=== PATIENT | female | born 1950 | race Caucasian/White ===

== ENCOUNTER 2024-03-10 13:46 | Outpatient (REF) | payer OTHER, SELFPAY | END 2024-03-10 13:47 | disposition home or self-care (01) | LOC: HO.SH 13:46 | PROVIDERS: Visit Provider Internal Medicine | DX: Z01.118 Encounter for examination of ears and hearing with other abnormal findings (principal); H90.3 Sensorineural hearing loss, bilateral | CPT/HCPCS: 92557; 92567 ==

== ENCOUNTER 2024-03-10 14:54 | Outpatient (REF) | payer SELFPAY ==
--- NOTE | 2024-03-14 10:24 | MHC.AU.HA1 ---
Hearing Aid Evaluation Date of Visit: 03/10/24 Historical Information: Description of Hearing: Within normal sloping to severe sensorineural hearing loss, bilaterally Summary: Accompanied by , Dax, who is a long-time hearing aid user. Shelia is ready to pursue amplification to help ease some of her communication difficulties. Shelia inquired about custom hearing aids, so as not to have anything behind her ears. Discussed occlusion effect given normal low frequency hearing. Shelia ultimately opted to trial a rechargeable RITE with domes. Shelia is not excited about getting hearing aids; however, she knows she needs them. Explained acclimatization period and importance of consistent use. Hearing Aid Prescription: Based on the individual?s shared listening needs, communication environments, dexterity, desire for connectivity, and personal preferences, the following prescription for amplification has been made: Right ear: Cooper Model, Color: Intent 2 miniRITE-R Color: Chroma Beige Battery Size: Rechargeable Clean Room Assembler/Slim Tube: 2/85 Type of Earmold/Dome/CShell/SlimTip: 8mm open michele dome Left ear: Left ear prescription to be same as Right Hearing Aid above: Model Cooper, Color: Intent 2 miniRITE-R Color: Chroma Beige Battery Size: Rechargeable Clean Room Assembler/Slim Tube: 2/85 Type of Earmold/Dome/CShell/SlimTip: 8mm open michele dome Accessories/Assistive Technology: Repair Tech; ConnectClip Plan of Care: Patient wishes to purchase hearing aids as prescribed Action Taken/Action Needed: Hearing Instrument Fitting to be scheduled when materials arrive Primary Diagnosis: H90.3 Bilateral Sensorineural Hearing Loss Signature: Provider: Panda Capellan, [facility]
== END 2024-03-10 14:55 | disposition home or self-care (01) ==
LOC: HO.HAP 14:54
PROVIDERS: Visit Provider Pediatrics
DX: Z46.1 Encounter for fitting and adjustment of hearing aid (principal); H90.3 Sensorineural hearing loss, bilateral
CPT/HCPCS: 92590

== ENCOUNTER 2024-03-28 13:31 | Outpatient (REF) | payer SELFPAY ==
--- NOTE | 2024-03-28 14:32 | MHC.AU.HA2 ---
Hearing Instrument Fitting- Adult- Binaural Date of Visit: 03/28/24 Hearing Instruments Dispensed: Right Ear: Make, Model, Color, Serial Number: Intent 2 miniRITE-R SN: [id number] Color: Chroma Beige Oxygen Therapy Technician Repair Warranty: 04/13/2027 Oxygen Therapy Technician Loss and Damage Warranty: 04/13/2027 [facility] Service Plan: OPTED OUT Battery Size: Rechargeable Branding Machine Tender/Slim Tube: 185 Earmold/Dome/CShell/SlimTip: 6mm open michele dome (no retention tail) Type of Wax Guard: miniFit Left Ear: Make, Model, Color, Serial Number: Intent 2 miniRITE-R SN: [id number] Color: Chroma Beige Oxygen Therapy Technician Repair Warranty: 04/13/2027 Oxygen Therapy Technician Loss and Damage Warranty: 04/13/2027 [facility] Service Plan: OPTED OUT Battery Size: Rechargeable Branding Machine Tender/Slim Tube: 185 Earmold/Dome/CShell/SlimTip: 6mm open michele dome (no retention tail) Type of Wax Guard: miniFit Accessories/Assistive Technology: Connectclip SN: [id number] Efrain: 04/13/2025; Mixing House Operator miniRITE SN: [id number] Efrain: 04/15/2027 Summary of Fitting: Accompanied by , Dax. Ran feedback analyzer and real ear measures. Decreased to AM2 due to perceived loudness. Own voice still uncomfortable but did not adjust any further at this time and encouraged time to acclimate to new sound quality. Discussed care, use, and rechargeability including manually turning on/off, VC use, and changing domes and wax guards. is a long-time hearing aid user and able to help with maintenance as needed. Practiced insertion/removal. Initially had retention tails but could not properly insert. Removed retention tail and still some difficulty inserting but motivated to practice. Dispensed ConnectClip but did not discuss at this time - instructed to bring back to follow up. Also did not discussed bluetooth yet. Recommendations: A hearing instrument follow-up was scheduled. Diagnosis Code(s): Primary Diagnosis: H90.3 Bilateral Sensorineural Hearing Loss Signature: Provider: Panda Capellan, [facility]
== END 2024-03-28 13:32 | disposition home or self-care (01) ==
LOC: HO.HAP 13:31
PROVIDERS: Visit Provider Internal Medicine
DX: Z46.1 Encounter for fitting and adjustment of hearing aid (principal); H90.3 Sensorineural hearing loss, bilateral
CPT/HCPCS: 92700; V5261; V5299

== ENCOUNTER 2024-04-18 12:46 | Outpatient (REF) | payer SELFPAY | END 2024-04-18 12:47 | disposition home or self-care (01) | LOC: HO.HAP 12:46 | DX: Z13.89 Encounter for screening for other disorder (principal) ==

== ENCOUNTER 2024-12-27 13:30 | Outpatient (AMB) | payer OTHER, SELFPAY ==
--- NOTE | 2024-12-27 13:34 | MHC.PC.OV ---
Vital Signs 12/27/24 13:36 Height 5 ft 2 in Weight 164 lb 14.492 oz BMI 30.2 BP 130/74 Blood Pressure Location Lt brachial Position Sitting Pulse 88 Pulse Source Pulse Oximeter Temp 57.1 F L Temp Source Temporal Artery Scan Pulse Oximetry (%) 98 Oxygen Delivery Method Room Air Intake Visit Reasons: Establish Care Intake Note: Patient is a new patient here to establish care for DM, Cholesterol, HTN, Seizure, Hx of stroke. Transferring care from DR Lucas . Medical records have been requested and have received. Pediatric Medical Assistant Required: No Winderman: Present Accompanied by: Spouse Allergies No Known Allergies Allergy (Verified 12/27/24 13:49) Medication List - Last Reconciled 12/27/24 by Sheron Pruitt PA-C amlodipine 5 mg PO DAILY aspirin 81 mg PO DAILY atorvastatin 80 mg PO DAILY blood-glucose sensor (FreeStyle Danni 3 Sensor device) Test blood sugar 5 times a day cholecalciferol (vitamin D3) 25 mcg PO DAILY dupilumab (Dupixent) 300 mg subcut Q2W insulin glargine (Lantus Solostar U-100 Insulin) 60 units subcut DAILY insulin lispro (Humalog KwikPen (U-100) Insulin) 14 units subcut DAILY levetiracetam 1,000 mg PO BID losartan 25 mg PO DAILY metformin 1,000 mg PO BID methenamine-sodium salicylate 162-162.5 mg (AZO Urinary Tract Defense) 1 tab PO BEDTIME multivitamin 1 tab PO DAILY pen needle, diabetic (Droplet Pen Needle) twice a day tirzepatide (Mounjaro) 10 mg subcut QWEEK Tobacco use date assessed: 12/27/24 Fall risk assessment: No Falls in past year Last assessed Fall Risk: 12/27/24 Dental Screening Dental Screen Date: 12/27/24 Did you have a dental visit in the last 12 months?: Yes Did you have a dental problem in the last 6 months where you did not have access to dental care?: No Was dental information given to patient?: Patient has dentist HPI Establish Care HPI Details 74-year-old female coming to the office for the 1st time. The patient is a 74-year-old female presenting with chronic disease management and medication review. Her Type 2 Diabetes Mellitus is under active monitoring with a recent A1c level of 7% and daily blood sugar readings using FreeStyle Danni, emphasizing patient engagement in condition control. She has a four-year history of seizure disorder, which began following a minor stroke that led to the use of a walker due to right-sided weakness. She has been under neurologist care with changes in medication overseen. Patient has a associate application developer through [facility], endocrinology through [facility], neurologist through [facility] and eye doctor yearly through [facility]. She also has a cutlery grinder through a [facility] manages her allergic dermatitis. [facility] Surgical History (Updated 12/27/24 @ 14:02 by Sheron Pruitt PA-C) History of knee surgery Social History Housing: House Alcohol intake: never Patient Tobacco Use Status: Never used Tobacco e-Cigarette/Vaping Use: Never Used Second Hand Smoke Exposure: No service: No Current occupational status: retired and disabled Cognitive needs: Yes (Wheelchair, Walker) Hearing needs: Yes (hearing aide) Vision needs: Yes (Glasses) Questionnaire PHQ-9 Over the last 2 weeks, how often have you been bothered by any of the following problems? 1. Little interest or pleasure in doing things: not at all 2. Feeling down, depressed, or hopeless: not at all 3. Trouble falling or staying asleep, or sleeping too much: not at all 4. Feeling tired or having little energy: several days 5. Poor appetite or overeating: not at all 6. Feeling bad about yourself - or that you are a failure or have let yourself or your family down: not at all 7. Trouble concentrating on things, such as reading the newspaper or watching television: not at all 8. Moving or speaking so slowly that other people could have noticed. Or the opposite - being so fidgety or restless that you have been moving around a lot more than usual: not at all 9. Thoughts that you would be better off or of hurting yourself in some way: not at all Total score: 1 Depression Screening Interpretation: Positive Depression Screening Follow-up: Declines treatment Depression Screening Done: Yes Source: Developed by Drs. Niko Heard, Yolanda Barakat, Yonathan Beauchamp and colleagues, with an educational balaji from [facility] [employer]. Thrive Questionnaire Date Thrive assessed: 12/27/24 I am a: Patient What is your living situation today?: I have a steady place to live Within the past 12 months, did the food you bought not last and you didn't have the money to get more?: Never true Within the past 12 months, did you worry whether your food would run out before you got money to buy more?: Never true Do you have trouble paying for medicines?: No Do you have trouble getting transportation to medical appointments?: No Do you have trouble paying your heating and electricity bill?: No Do you have trouble taking care of your child, family member or friend?: No Do you have trouble with day-to-day activities such as bathing, preparing meals, shopping, managing finances, etc.?: No Are you currently unemployed and looking for a job?: No Are you interested in more education?: No Please select the resources that you would like help with: None Currently or been in a relationship where the following occur: No concerns reported THRIVE Score: 0 AUDIT C Alcohol Use Questionnaire (AUDIT-C) 1. How often do you have a drink containing alcohol?: Never Total Score: 0 ALBERT-7 AMB Questionnaire ALBERT-7 Date ALBERT - 7 assessed: 12/27/24 Feeling nervous, anxious, or on edge: 0 = Not at all Not being able to stop or control worryin = Not at all Worrying too much about different things: 0 = Not at all Trouble relaxin = Not at all Being so restless that it is hard to sit still: 0 = Not at all Becoming easily annoyed or irritable: 1 = Several days Feeling afraid as if something awful might happen: 0 = Not at all Total ALBERT-7 score (0-4 normal; 5-9 mild; 10-14 moderate; 15-21 severe): 1 Source: Developed by Drs. Niko Heard, Yolanda Barakat, Yonathan Beauchamp and colleagues, with an educational balaji from [facility]. ALBERT-7 Assessment Billing ALBERT-7 Assessment Tool: ALBERT-7 Assessment 16119 Review of Systems Const Denies body aches, Denies chills, Denies fever(s), Denies headache(s) and Denies poor appetite Eyes Reports no additional complaints ENT Denies dysphagia, Denies dizziness, Denies headache(s) and Denies odynophagia Card Denies chest pain, Denies syncope, Denies edema, Denies irregular heart rhythm, Denies lightheadedness and Denies dyspnea Resp Denies cough and Denies dyspnea GI Denies abdominal pain, Denies constipation, Denies dysphagia, Denies diarrhea, Denies nausea, Denies odynophagia and Denies vomiting Reports no additional complaints Musc Reports abnormal gait Skin/Breast Reports system reviewed and no additional complaints, except as documented Neuro Reports abnormal gait, Denies dizziness, Denies syncope and Denies headache(s) Psych Reports no additional complaints Physical exam (Primary Care) Vital Signs: Last Vital Signs Temp 57.1 F L 12/27/24 13:36 Pulse 88 12/27/24 13:36 BP 130/74 12/27/24 13:36 Pulse Ox 98 12/27/24 13:36 Oxygen Delivery Method Room Air 12/27/24 13:36 BMI result Body Mass Index 30.2 Tobacco/Smoking Status: Tobacco use Status Tobacco use date assessed 12/27/24 12/27/24 13:36 Patient Tobacco Use Status Never used Tobacco 12/27/24 13:36 e-Cigarette/Vaping Use Never Used 12/27/24 13:36 PHQ-9: PHQ-9 Score PHQ-9: Total score 1 12/27/24 14:12 Depression Screening Interpretation: Positive Depression Screening Follow-up: Declines treatment Thrive Assessment: Date of Thrive Assessment Date Thrive assessed 12/27/24 12/27/24 13:36 Currently or been in a relationship where the following occur: No concerns reported Const General: cooperative, healthy appearing, comfortable and no acute distress Orientation/consciousness: patient oriented x3 HENMT Head: Yes normocephalic Ears: hearing grossly normal bilaterally General nose exam: Normal external nose present Eyes General: appearance normal, both eyes and all related structures Conjunctivae: conjunctivae normal Neck Neck: Yes full ROM and Yes no lymphadenopathy Resp Effort & Inspection: normal respiratory effort Auscultation: clear to auscultation bilaterally, no crackles, no rales, no rhonchi and no wheezes Cardio Rate: regular rate Rhythm: regular rhythm Skin General skin exam: no rashes or lesions noted Neuro General: patient oriented x3 Gait exam (Neuro): Normal gait present Extrem General: Yes normal to inspection, Yes full ROM and No edema Psych Affect: normal affect Attitude: cooperative Insight: Good insight present (Psych) Judgement: Good judgement present (Psych) Results AMB Hemoglobin A1c AMB Hemoglobin A1c 7.0 % Last Edit by DARLINE Sánchez on 12/27/24 14:20 Results Reviewed Results Reviewed: Laboratory Last Values Hgb A1c (Clinic) 7.0 % (4.0-6.0) H 12/27/24 14:02 Coding Level of Care Code New Pt Level 4 (99270) Diagnoses Diabetes mellitus E11.9 Seizure disorder G40.909 Hypercholesterolemia E78.00 CVA (cerebral vascular accident) I63.9 Hypertension I10 Dermatitis L30.9 Screening for breast cancer Z12.39 Additional Codes ALBERT-7 Assessment Billing - ALBERT-7 Assessment Tool: ALBERT-7 Assessment 12740 ([id number]) Assessment & Plan Assessment & Plan (1) Diabetes mellitus: Comment: [facility] endocrinology Code(s): E11.9 - Type 2 diabetes mellitus without complications Category: Medical Plan: Decrease the amount of carbohydrates such as pasta, bread, rice, and potatoes and limit the amount of sweets. Although fruits are generally healthy they should be eaten in moderation as they are still high in sugar. Hemoglobin A1c goal of less than 7%. Currently on Mounjaro 10 mg, metformin 1000 mg twice daily, Lantus 60 units daily and Humalog 14 units daily. Currently following up [facility] endocrinology for management of her medications. (2) Seizure disorder: Comment: [facility] Neurology Code(s): G40.909 - Epilepsy, unspecified, not intractable, without status epilepticus Category: Medical Plan: Patient has upcoming appointment with neurologist for further management of her seizure disorder s/p CVA. (3) Hypercholesterolemia: Code(s): E78.00 - Pure hypercholesterolemia, unspecified Category: Medical Plan: Avoid foods that are high in cholesterol such as red meat, fried foods, eggs and baked goods. Triglyceride goal of less than 150 and LDL goal of less than 70. Continue on atorvastatin 80 ordered for updated blood work (4) CVA (cerebral vascular accident): Comment: 2020 minor stroke Code(s): I63.9 - Cerebral infarction, unspecified Category: Medical Plan: Patient had minor stroke in 2020. Advised good control of blood sugars, cholesterol and blood pressures. Continue aggressive management of cholesterol with atorvastatin 80 mg, on aspirin 81 mg daily and aggressive blood pressure management (5) Hypertension: Code(s): I10 - Essential (primary) hypertension Category: Medical Plan: Continue on current blood pressure medication. Avoid salt intake and encourage healthy diet and regular exercise. (6) Dermatitis: Comment: [facility] Code(s): L30.9 - Dermatitis, unspecified Category: Medical Plan: Patient follows with [facility] for allergic dermatitis and uses Dupixent for management. (7) Screening for breast cancer: Code(s): Z12.39 - Encounter for other screening for malignant neoplasm of breast Category: Medical Plan: Patient declines referral for mammogram at this time and states she will call to schedule mammogram herself. Plan Ordered for updated blood work and plan to follow up in 3 months for annual exam. This note was constructed using voice recognition software. While every effort has been made to ensure accuracy and gardening supervisor, still areas may have been included sometimes these areas may affect the content or meeting of the given symptoms. Total time spent caring for the patient today was 30 minutes. This includes time spent before the visit reviewing the chart, time spent during the visit, and time spent after the visit and documentation. Patient was informed and verbally consented to the use of an ambient scribe for clinic note documentation during this visit. Orders: Orders AMB Hemoglobin A1c Today E11.9 - Type 2 diabetes mellitus without complications TSH reflex Free T4 Today Z00.00 - Encounter for general adult medical examination without abnormal findings Lipid Panel Today E78.00 - Pure hypercholesterolemia, unspecified Complete Blood Count Auto Diff Today Z00.00 - Encounter for general adult medical examination without abnormal findings Comprehensive Met. Panel Today Z00.00 - Encounter for general adult medical examination without abnormal findings Free T4 (Free Thyroxine) Today Z00.00 - Encounter for general adult medical examination without abnormal findings Vitamin B12 and Folate Today Z00.00 - Encounter for general adult medical examination without abnormal findings Vitamin D 25-OH Total Today Z00.00 - Encounter for general adult medical examination without abnormal findings Referrals Gastroenterology Referral Z12.11 - Encounter for screening for malignant neoplasm of colon
[2024-12-27 13:36] VITALS: BP 130/74; PULSE 88; TEMP 13.9; O2SAT 98; BMI 30.2
--- OUTSIDE RECORDS SUMMARY | 2024-12-27 16:10 | XMS_ITS | Clinical Summary ---
Author Organization [facility] Address [address] [place] [address] Phone Care Team Providers Care Tow Driver Name Role Phone Shahram Jeffery MD Primary Care Provider Allergies No known active allergies Medications amLODIPine (NORVASC) 5 mg tablet 5 Active atorvastatin (LIPITOR) 80 mg tablet Take 1 tablet (80 mg total) by mouth 1 (one) time each day. 4 Active FreeStyle Danni 3 [place] misc use as directed to test blood sugar 4 Active FreeStyle Danni 3 Sensor device 5 Active FreeStyle Danni 14 Day Sensor kit USE TO MONITOR BLOOD SUGAR FOUR TIMES A DAY. REPLACE EVERY 14 DAYS. 4 Active Lantus Solostar U-100 Insulin 100 unit/mL (3 mL) injection pen INJECT 54 UNITS SUBCUTANEOUSLY EVERY DAY 5 Active levETIRAcetam (KEPPRA) 500 mg tablet Take 2 tablets (1,000 mg total) by mouth 2 (two) times a day. 5 Active losartan (COZAAR) 25 mg tablet 5 Active metFORMIN (GLUCOPHAGE) 1,000 mg tablet 5 Active mupirocin (BACTROBAN) 2 % ointment APPLY TOPICALLY TO AFFECTED OPEN AREAS EVERY MORNING AND EVERY EVENING UNTIL HEALED 4 Active Droplet Pen Needle 32 gauge x 5/32 needle 5 Active Mounjaro 7.5 mg/0.5 mL injection Inject 0.5 mL (7.5 mg total) under the skin. 4 Active HumaLOG KwikPen Insulin 100 unit/mL injection pen 5 Active Trulicity 1.5 mg/0.5 mL pen injector injection INJECT 0.5ML SUBCUTANEOUSLY EVERY WEEK DIRECTED. ROTATE INJECTION SITES 4 Active cefpodoxime (VANTIN) 200 mg tablet Take 1 tablet (200 mg total) by mouth every 12 (twelve) hours. for 7 days 4 Active Encounters Date Type Department Care Team Description 11/24/2024 Telephone Gastroenterology - [address] [place] [address] Tarun Marx MD from Last 3 Months Social History Tobacco Use Types Packs/Day Years Used Date Smoking Tobacco: Never Assessed Comments Unknown Sex and Gender Information Value Date Recorded Sex Assigned at Not on file Legal Sex Female 6:05 PM EST Gender Identity Not on file Sexual Orientation Not on file Plan of Treatment Health Maintenance Due Date Last Done Comments DTaP,Tdap,and Td Vaccines (1 - Tdap) 1970 Pneumococcal Vaccine: 50+ Years (1 of 1 - PCV) 2001 Zoster Vaccines (1 of 2) 2001 Colorectal Cancer Screening: Colonoscopy 08/29/2022 Depression Screening 08/29/2022 Falls Risk Assessment 08/29/2022 Hepatitis C Screening 08/29/2022 Medicare Annual Wellness Visit 08/29/2022 Osteoporosis Screening (Bone Density Screening) 08/29/2022 Social Influencers of Health Screening 08/29/2022 Breast Cancer Screening 01/09/2024 01/09/20, 05/05/2019, 05/02/2018 COVID-19 Vaccine ( - 2023-2 5 season) 2024 Influenza Vaccine (#1) 2024 RSV Immunization Adult Patients (1 - 1-dose 75+ series) 2026 HIB Vaccines Aged Out No longer eligi ble based on patient's age to complete this topic HPV Vaccines Aged Out No longer eligi ble based on patient's age to complete this topic Hepatitis A Vaccines Aged Out No long er eligible based on patient's age to complete this topic Hepatitis B Vaccines Aged Out No long er eligible based on patient's age to complete this topic IPV Vaccines Aged Out No longer eligi ble based on patient's age to complete this topic MMR Vaccines Aged Out No longer eligi ble based on patient's age to complete this topic Meningococcal ACWY Vaccine Aged Out N o longer eligible based on patient's age to complete this topic Meningococcal B Vacine Aged Out No lo nger eligible based on patient's age to complete this topic RSV Immunization Patients Under 20 months Aged Out No longer eligible b ased on patient's age to complete this topic Varicella Vaccines Aged Out No longer eligible based on patient's age to complete this topic Procedures Procedure Name Priority Date/Time Associated Diagnosis Comments [facility] SCREENING DIGITAL Routine 01/08/2022 1:30 PM EDT Encounter for screening mammogram for malignant neoplasm of breast from Last 3 Months or Most Recently Relevant to Health Maintenance Results * [facility] SCREENING DIGITAL (01/08/2022 1:30 PM EDT) Anatomical Region Laterality Modality Mammography 01/08/2022 11:0 9 AM EDT Narrative 01/08/2022 1:30 PM EDT [facility] Diagnostic Imaging Department [address] [place], [place] [id number] Patient: ??SHELIA GREEN ?/Age/Sex: 1950 - 71 - F Unit#: ??[id number] ? Location/Status: ??SPDIMAM/REG CLI ? Mnemonic/Ordering Site: ??DIGSC/SPMAM Ordering Physician: ??SHAHRAM JEFFERY MD [facility] Screening Digital - 01/08/22 - 1134 EXAM: [facility] Screening Digital EXAM DATE AND TIME: 01/08/2022 11:34 AM HISTORY: ??Screening. COMPARISON: ??05/05/19, 05/02/18, 04/21/17, 03/09/16 TECHNIQUE: CC and MLO views of both breasts were obtained using full field digital mammography. Bilateral digital breast tomosynthesis was performed in the MLO projection. Computer aided detection with the [employer]Waynaut was employed. TISSUE DENSITY: a. The breasts are almost entirely fatty. FINDINGS: No suspicious masses, grouped microcalcifications, or areas of architectural distortion are seen. Several coarse, benign calcifications are scattered bilaterally, unchanged. Vascular calcification is present. The skin is unremarkable. IMPRESSION: Stable mammographic appearance of the breasts. ??No evidence of malignancy is seen. A negative mammogram in the presence of a clinically suspicious palpable abnormality does not preclude the possibility of malignancy or alter the indicat ions for biopsy. BI-RADS: ??Category 2: Benign RECOMMENDATION(S): 1: Routine screening mammogram BILATERAL in 1 year. 07163, 59545 3342F, 7025F Dictating Physician: ??YAN LOCO MD Electronically Signed by: ??YAN LOCO MD Dic Date/Time: ??01/08/22 1330 Sign date/Time: ??01/08/22 1330 Procedure Note Yan Loco MD - 09/16/2022 [facility] Diagnostic Imaging Department [address] [place] [address] [id number] Patient: SHELIA GREEN/Age/Sex: 1950 - 71 - F Unit#: [id number] Location/Status: SPDIMAM/REG CLI Mnemonic/Ordering Site: [facility] Ordering Physician: SHAHRAM JEFFERY MD [facility] Screening Digital - 01/08/22 - 1134 EXAM: [facility] Screening Digital EXAM DATE AND TIME: 01/08/2022 11:34 AM HISTORY: Screening. COMPARISON: 05/05/19, 05/02/18, 04/21/17, 03/09/16 TECHNIQUE: CC and MLO views of both breasts were obtained using fullfield digital mammography. Bilateral digital breast tomosynthesis was performedin the MLO projection. Computer aided detection with the [employer]Eqv[employer]as employed. TISSUE DENSITY: a. The breasts are almost entirely fatty. FINDINGS: No suspicious masses, grouped microcalcifications, or areas ofarchitectural distortion are seen. Several coarse, benign calcifications are scattered bilaterally, unchanged. Vascular calcification is present. The skin is unremarkable. IMPRESSION: Stable mammographic appearance of the breasts. No evidence of malignancyis seen. A negative mammogram in the presence of a clinically suspicious palpable abnormality does not preclude the possibility of malignancy or alter theindicat ions for biopsy. BI-RADS: Category 2: Benign RECOMMENDATION(S): 1: Routine screening mammogram BILATERAL in 1 year. 05172, 15742 3342F, 7025F Dictating Physician: YAN LOCO MD Electronically Signed by: YAN LOCO MD Dic Date/Time: 01/08/22 1330 Sign date/Time: 01/08/221329 us Shahram Jeffery MD IMG BI PROCEDURES Final Res ult from Last 3 Months or Most Recently Relevant to Health Maintenance Insurance [facility] MEDICARE ADVANTAGE on file [facility] Care Teams Tow Driver Relationship Specialty Start Date End Date Shahram Jeffery MD [address] [place] [id number] PCP - General Internal Medicine 11/24/24
--- OUTSIDE RECORDS SUMMARY | 2024-12-27 16:10 | XMS_ITS | Encounter Summary ---
Author Organization [facility] [place] [address] Care Team Providers Care Sales Support Technician Name Role Phone Brenden Lucas MD Primary Care Provider [phone] Encounter Details Date Type Department Care Team (Late st Contact Info) Description 11/24/2024 Telephone Gastroenterology - [address] [place] [id number] Tarun Marx MD [address] [place] [address] Social History Tobacco Use Types Packs/Day Years Used Date Smoking Tobacco: Never Assessed Comments Unknown Sex and Gender Information Value Date Recorded Sex Assigned at Not on file Legal Sex Female 6:05 PM EST Gender Identity Not on file Sexual Orientation Not on file documented as of this encounter Progress Notes * Kelsey Tijerina MA - 11/24/2024 11:50 AM EST Medications and allergies updated. * Soni Maxwell - 11/24/2024 9:41 AM EST Records received from [facility] to book direct colon, given to VELASQUEZ to update meds and allergies. documented in this encounter Plan of Treatment Not on file documented as of this encounter Visit Diagnoses Not on filedocumented in this encounter Historical Medications * This list may reflect changes made after this encounter. cefpodoxime (VANTIN) 200 mg tablet Take 1 tablet (200 mg total) by mouth every 12 (twelve) hours. for 7 days 06/15/2024 Trulicity 1.5 mg/0.5 mL pen injector injection INJECT 0.5ML SUBCUTANEOUSLY EVERY WEEK DIRECTED. ROTATE INJECTION SITES 01/10/2024 HumaLOG KwikPen Insulin 100 unit/mL injection pen 10/15/2024 Mounjaro 7.5 mg/0.5 mL injection Inject 0.5 mL (7.5 mg total) under the skin. 09/17/2024 Droplet Pen Needle 32 gauge x 5/32 needle 09/28/2024 mupirocin (BACTROBAN) 2 % ointment APPLY TOPICALLY TO AFFECTED OPEN AREAS EVERY MORNING AND EVERY EVENING UNTIL HEALED 04/11/2024 metFORMIN (GLUCOPHAGE) 1,000 mg tablet 09/27/2024 losartan (COZAAR) 25 mg tablet 09/28/2024 levETIRAcetam (KEPPRA) 500 mg tablet Take 2 tablets (1,000 mg total) by mouth 2 (two) times a day. 11/08/2024 Lantus Solostar U-100 Insulin 100 unit/mL (3 mL) injection pen INJECT 54 UNITS SUBCUTANEOUSLY EVERY DAY 10/31/2024 FreeStyle Danni 14 Day Sensor kit USE TO MONITOR BLOOD SUGAR FOUR TIMES A DAY. REPLACE EVERY 14 DAYS. 12/21/2023 FreeStyle Danni 3 Sensor device 11/22/2024 FreeStyle Danni 3 [place] misc use as directed to test blood sugar 12/22/2023 atorvastatin (LIPITOR) 80 mg tablet Take 1 tablet (80 mg total) by mouth 1 (one) time each day. 07/05/2024 amLODIPine (NORVASC) 5 mg tablet 09/28/2024 added in this encounter Care Teams Sales Support Technician Relationship Specialty Start Date End Date Brenden Lucas MD [address] [place], [place] [id number] PCP - General Internal Medicine 11/24/24 documented as of this encounter
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
--- OUTSIDE RECORDS SUMMARY | 2024-12-27 16:11 | XMS_ITS | Patient Health Record ---
Author Organization [facility] Address [address] [facility] [place] [address] Care Team Providers Care Supervisor Rod Placing Name Role Phone Brenden Lucas MD Primary Care Provider Lisa Lema Unavailable [phone] Allergies No Known Allergies Reason For Referral No Information Medications Medication SIG (Take, Route, Frequency, Duration) Notes Start Date End Date Status Custom Orthotics Act quita Trulicity Active Vitamin D Active Leesa 5-20 MG Orally twice a day Active Aspirin 325 MG 1 tablet as needed Orally every 4 hrs Not-Taking Omeprazole Active Vicodin Not-Taking Lipitor Active Bystolic Not-Taking metFORMIN HCl 1000 MG Orally twice a day Active Insulin 56 units Act quita Extra Depth Orthopedic Shoes (1 Pair) with Customized Heat Molded Multidensity Innersoles (3 Pair) as directed Dx: NIDDM/Polyneuropathy (E11.42), Hammertoe Foot Deformity (M20.41,M20.42), Preulcerative Skin Lesion(s) (L85.1 02/14/2024 Active Lantus 56 units once a day Act quita Biofreeze Not-Taking Dupixent Active Actos Active Aspir-81 81 MG 1 tablet Orally Once a day for 30 day(s) Active [facility] Active Immunizations Vaccine Route Administration Date Status Comme nts Influenza Unknown 06/23/2016 Administered Influenza Unknown 08/03/2017 Administered Influenza Unknown 07/18/2018 Administered Influenza Unknown 07/28/2019 Administered Influenza Unknown 05/28/2020 Administered Influenza Unknown 08/27/2021 Administered Influenza Unknown 06/01/2023 Administered Social History Tobacco Use: Social History Observation Description Date Details (start date - stop date) Never Smoker NA - NA Tobacco Use/Smoking Question Answer Notes Are you a: nonsmoker Additional Findings: Tobacco Non-User Current no n-smoker Alcohol Screen Question Answer Notes Did you have a drink containing alcohol in the p ast year? No Points 0 Interpretation Negative Tobacco use other than smoking: Question Answer Notes Are you an other tobacco user? No Problems Problem Type SNOMED Code ICD Code Onset Dates Problem Status W/U Status Risk Notes Problem Acquired hammer toe of right foot (8930386563362557) Other hammer toe(s) (acquired), right foot (M20.41) Active confirmed Problem Acquired hallux valgus (94314294) Hallux valgus (acquired), left foot (M20.12) Active confirmed Problem Acquired hammer toe of left foot (0622231372940974) Other hammer toe(s) (acquired), left foot (M20.42) Active confirmed Problem Acquired hallux valgus (92096456) Hallux valgus (acquired), right foot (M20.11) Active confirmed Problem Non-pressure ulcer lower limb (461047155) Non-pressure chronic ulcer of other part of left foot limited to breakdown of skin (L97.521) Active confirmed Problem Acquired hammer toe of right foot (4476912834656523) Other hammer toe(s) (acquired), right foot (M20.41) Active confirmed Problem Acquired hammer toe of left foot (5954397578469937) Other hammer toe(s) (acquired), left foot (M20.42) Active confirmed Problem Plantar nerve lesion (199896055) Lesion of plantar nerve, 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) Active confirmed Problem Polyneuropathy due to diabetes mellitus type I (165718143) Type 1 diabetes mellitus with diabetic polyneuropathy (E10.42) Active confirmed Problem 16701031982678476 Skin ulcer of toe of right foot, limited to breakdown of skin (L97.511) Active confirmed Problem 06392621822770536 Skin ulcer of toe of left foot, limited to breakdown of skin (L97.521) Active confirmed Vital Signs Height 5ft 3in in 08/31/2024 Weight 160 lbs 08/31/2024 BMI 28.34 kg/m2 08/31/2024 Procedures Procedure Date Ordered Date Performed Result Body Sit e 82096-WWQHLYA NAIL, 6 OR MORE 02/03/2024 N/A 19316- Debride <25 sq cm 02/03/2024 N/A 08813- I&D ABSCESS-COMPLICATED,MULTI 02/03/2024 N/A 32013-XXUY SKIN LESIONS, OVER 4 02/03/2024 N/A 96722- Debride <25 sq cm 02/14/2024 N/A 64264-CSGYHWA NAIL, 6 OR MORE 06/29/2024 N/A 62575-Rbhusyzl Plate 06/29/2024 N/A 75012-RZNI SKIN LESIONS, OVER 4 06/29/2024 N/A 00282-HIGYLEY NAIL, 6 OR MORE 08/31/2024 N/A 69516-IIDN SKIN LESIONS, OVER 4 08/31/2024 N/A Encounters Encounter Location Date Provider Diagnosis [address] [address] 02/03/2024 Lisa Black Type 1 diabetes mellitus with diabetic polyneuropathy E10.42 ; Subungual abscess of toe, right L03.031 ; Tinea unguium B35.1 ; Subungual abscess of toe, left L03.032 and Skin ulcer of toe of left foot, limited to breakdown of skin L97.[address] [address] 02/14/2024 Lisa Black Other hammer toe(s) (acquired), right foot M20.41 ; Other hammer toe(s) (acquired), left foot M20.42 ; Type 1 diabetes mellitus with diabetic polyneuropathy E10.42 and Skin ulcer of toe of right foot, limited to breakdown of skin L97.[address] [address] 06/29/2024 Lisa Black Tinea unguium B35.1 ; Type 1 diabetes mellitus with diabetic polyneuropathy E10.42 and Ingrown nail L60.[address] [address] 08/31/2024 Lisa Black Tinea unguium B35.1 and Type 1 diabetes mellitus with diabetic polyneuropathy E10.42 [address] [address] [place] [address] 02/03/2024 Lisa Crouch [facility] [address] [address] 05/31/2024 Lisadominick Crouch [facility] [address] [address] 11/02/2024 Lisa Crouch Assessments Encounter Date Diagnosis (ICD Code) Assessment Notes Treatment Notes Treatment Clinical Notes Section Notes 02/03/2024 Type 1 diabetes mellitus with diabetic polyneuropathy (ICD-10 - E10.42) 02/03/2024 Subungual abscess of toe, right (ICD-10 - L03.031) 02/14/2024 Other hammer toe(s) (acquired), right foot (ICD-10 - M20.41) Patient Educated with: DIABETIC FOOT CARE INSTRUCTIONS. pdf (DIABETIC FOOT CARE INSTRUCTIONS. pdf) 02/14/2024 Other hammer toe(s) (acquired), left foot (ICD-10 - M20.42) 06/29/2024 Tinea unguium (ICD-10 - B35.1) 08/31/2024 Tinea unguium (ICD-10 - B35.1) 08/31/2024 Type 1 diabetes mellitus with diabetic polyneuropathy (ICD-10 - E10.42) 06/29/2024 Type 1 diabetes mellitus with diabetic polyneuropathy (ICD-10 - E10.42) 02/14/2024 Type 1 diabetes mellitus with diabetic polyneuropathy (ICD-10 - E10.42) 02/03/2024 Tinea unguium (ICD-10 - B35.1) 02/14/2024 Skin ulcer of toe of right foot, limited to breakdown of skin (ICD-10 - L97.511) 02/03/2024 Subungual abscess of toe, left (ICD-10 - L03.032) 06/29/2024 Ingrown nail (ICD-10 - L60.0) 02/03/2024 Skin ulcer of toe of left foot, limited to breakdown of skin (ICD-10 - L97.521) Plan Of Treatment Pending Test Test Name Order Date *Wound Culture 02/03/2024 17903-NFQUIQG NAIL, 6 OR MORE 02/03/2024 22327-IYYFWDG NAIL, 6 OR MORE 07/26/2023 03042-TKRZUUA NAIL, 6 OR MORE 11/04/2023 56191-WZHYQYL NAIL, 6 OR MORE 10/26/2022 18683-PKGXNXN NAIL, 6 OR MORE 01/28/2023 32072-FSWZESG NAIL, 6 OR MORE 05/10/2023 82710-RPTPAVN NAIL, 6 OR MORE 06/29/2024 49284-HRFZSGP NAIL, 6 OR MORE 08/31/2024 94897-DMNVIUM NAIL, 6 OR MORE 12/09/2011 62081-SOABJRO NAIL, 6 OR MORE 03/16/2012 11526-JOEBJHQ NAIL, 6 OR MORE 09/28/2012 06515-JMQRXDT NAIL, 6 OR MORE 12/28/2012 31606-FGIZYRC NAIL, 6 OR MORE 05/31/2013 60119-YZQMGCD NAIL, 6 OR MORE 10/11/2013 04410-NHIJUWU NAIL, 6 OR MORE 03/21/2014 10769-PMHDSEU NAIL, 6 OR MORE 06/27/2014 76280-WIJCTGU NAIL, 6 OR MORE 09/12/2014 65274-BFSIUTL NAIL, 6 OR MORE 12/12/2014 90364-DPCFKOY NAIL, 6 OR MORE 02/27/2015 31993-CZFRERM NAIL, 6 OR MORE 06/12/2015 55375-ERWPWUV NAIL, 6 OR MORE 10/16/2015 72463-ACDNHNA NAIL, 6 OR MORE 04/22/2016 73858-DLPPLEI NAIL, 6 OR MORE 07/23/2016 84158-ZYPSARD NAIL, 6 OR MORE 10/22/2016 24010-IYNSIIG NAIL, 6 OR MORE 12/24/2016 13442-MELSFIG NAIL, 6 OR MORE 01/22/2016 64996-IZMEKTF NAIL, 6 OR MORE 02/25/2017 19498-BJOYIYP NAIL, 6 OR MORE 04/29/2017 55656-TKZZPJU NAIL, 6 OR MORE 07/01/2017 91179-WVJYQTL NAIL, 6 OR MORE 09/02/2017 88106-HLCWPIZ NAIL, 6 OR MORE 11/18/2017 50879-JWTKPAX NAIL, 6 OR MORE 01/20/2018 27778-NIVKJQA NAIL, 6 OR MORE 04/06/2018 75725-QKMSICB NAIL, 6 OR MORE 05/26/2018 81101-ZQCJRTK NAIL, 6 OR MORE 08/04/2018 78409-RBEFTUL NAIL, 6 OR MORE 12/08/2018 53245-NLEGKKY NAIL, 6 OR MORE 02/09/2019 27258-LLTHYKZ NAIL, 6 OR MORE 04/13/2019 11042-MAMACEP NAIL, 6 OR MORE 06/15/2019 17613-ZBYNTLC NAIL, 6 OR MORE 09/07/2019 71645-PEIMCNJ NAIL, 6 OR MORE 11/16/2019 03739-LOKTFQU NAIL, 6 OR MORE 01/25/2020 37731-LOCBJEZ NAIL, 6 OR MORE 04/11/2020 50528-BVQBAFC NAIL, 6 OR MORE 01/20/2021 62868-ETQKEOL NAIL, 6 OR MORE 04/10/2021 00555-LUJFGFJ NAIL, 6 OR MORE 07/24/2021 14801-OULVVOJ NAIL, 6 OR MORE 10/06/2021 60540-KSOSLTP NAIL, 6 OR MORE 12/15/2021 20840-YTHJMDB NAIL, 6 OR MORE 02/16/2022 97731-VUERUCH NAIL, 6 OR MORE 05/04/2022 53616-NRQBQSH NAIL, 6 OR MORE 07/16/2022 29448-Rwgwyuvo Plate 05/04/2022 87456-Mazohtzh Plate 07/16/2022 81576-Qtlwadsr Plate 02/16/2022 83669-Uocnzyeb Plate 12/15/2021 16266-Alyafkrd Plate 07/24/2021 84906-Rnkqleiv Plate 01/20/2021 93601-Hpjxbene Plate 01/25/2020 80157-Aeicqbkj Plate 11/16/2019 22271-Kkyikosc Plate 05/26/2018 52857-Hwxggazz Plate 04/13/2019 50077-Hafthloq Plate 07/01/2017 31276-Vnxcodjc Plate 01/20/2018 01214-Utbhsjzc Plate 09/02/2017 83529-Pjszjmvi Plate 2017 65842-Qpzgksrv Plate 04/29/2017 27544-Nyqwojrm Plate 12/24/2016 66500-Ulowkjqv Plate 10/22/2016 39461-Tmvbvmcw Plate 07/23/2016 76694-Gwoqyhex Plate 04/22/2016 72945-Dbmhnhrb Plate 01/22/2016 46316-Prllcnln Plate 10/16/2015 26635-Hjssyrvn Plate 06/12/2015 97393-Ansmetep Plate 02/27/2015 80813-Ptnbkneg Plate 12/12/2014 09036-Zwcgxbsf Plate 09/12/2014 65165-Gsumyqfh Plate 03/21/2014 11608-Nhahuybn Plate 06/27/2014 35249-Fgdbokfi Plate 10/11/2013 61925-Sdxztrbo Plate 05/31/2013 20891-Xdeqsoid Plate 12/28/2012 54743-Owmfctvb Plate 09/28/2012 83517-Aocjmdnk Plate 03/16/2012 35850-Osqfysvk Plate 12/09/2011 66261-Cjxdbnbt Plate 06/29/2024 85503-Pmogemwr Plate 10/26/2022 76662-Tmhjeetv Plate 05/10/2023 54766-Fhtbvrds Plate 07/26/2023 79746-Jimfqwvo Plate Each Additional 99386-Hoywwvlk Plate Each Additional 12/2012 47724-Luznykix Plate Each Additional 61020-Vwcksjnk Plate Each Additional 09/2013 18594-Ndqxfars Plate Each Additional 88173-Bgqezyib Plate Each Additional 78755-Joipsfqx Plate Each Additional 47059-Fycezsir Plate Each Additional 11/2014 40266-Zlmymcfj Plate Each Additional 40573-Tebsgjws Plate Each Additional 38169-Optjrtjk Plate Each Additional 42057-Ohqctwxz Plate Each Additional 16406-Wgdzztkx Plate Each Additional 95767-Qgwjjbkw Plate Each Additional 72322-Xlyqjuzk Plate Each Additional 11/2016 98596-Dsugpmzr Plate Each Additional 03/2017 37697-Kprjthnw Plate Each Additional 14276-Dccoxkvs Plate Each Additional 96900-Eotpkffa Plate Each Additional 60374-Ylirmwli Plate Each Additional 14315-Slsauqxj Plate Each Additional 30497-Zqvzbxyk Plate Each Additional 68904-Yvytlpom Plate Each Additional 66521-Ntogxflf Plate Each Additional 04/2022 08626- Debride <25 sq cm 02/14/2024 05016- Debride <25 sq cm 02/03/2024 70888 I&D ABSCESS- SIMPLE,SINGLE 021 39612 I&D ABSCESS- SIMPLE,SINGLE 021 29747- I&D ABSCESS-COMPLICATED,MULTI 05/2024 50652-YPSE SKIN LESIONS, OVER 4 06/29/20 24 24236-MCHV SKIN LESIONS, OVER 4 08/31/20 24 69151-IYDJ SKIN LESIONS, OVER 4 02/03/20 24 08895-STRQ SKIN LESIONS, OVER 4 11/04/19 24 19529-YPQL SKIN LESIONS, OVER 4 07/26/20 23 15482-GMUK SKIN LESIONS, OVER 4 05/10/20 23 16682-QBEM SKIN LESIONS, OVER 4 01/29/20 23 01661-ZEPC SKIN LESIONS, OVER 4 11/18/19 18 93823-STHV SKIN LESIONS, OVER 4 05/26/20 18 02522-ROQE SKIN LESIONS, OVER 4 09/02/20 17 18011-OVQB SKIN LESIONS, 2 TO 4 07/01/20 17 39533-TJCZ SKIN LESIONS, 2 TO 4 01/22/20 16 42003-ECXS SKIN LESIONS, 2 TO 4 04/29/20 17 06472-WSWM SKIN LESIONS, 2 TO 4 12/25/19 17 75776-BKLD SKIN LESIONS, 2 TO 4 02/26/20 17 16481-JCGL SKIN LESIONS, 2 TO 4 10/22/19 17 15837-BCFP SKIN LESIONS, 2 TO 4 07/23/20 16 74395-AURF SKIN LESIONS, 2 TO 4 04/22/20 16 54099-MSBJ SKIN LESIONS, 2 TO 4 10/16/19 16 29663-RDKC SKIN LESIONS, 2 TO 4 06/12/20 15 73841-UQFC SKIN LESIONS, 2 TO 4 02/28/20 15 68648-ZULS SKIN LESIONS, 2 TO 4 12/13/19 15 45457-FAFH SKIN LESIONS, 2 TO 4 09/12/20 14 10006-KORR SKIN LESIONS, 2 TO 4 06/27/20 14 70056-ZIAU SKIN LESIONS, 2 TO 4 08/04/20 18 55517-YNOW SKIN LESIONS, 2 TO 4 02/10/20 19 61705-YJIN SKIN LESIONS, 2 TO 4 12/09/19 62413-EPCP SKIN LESIONS, 2 TO 4 01/21/20 18 52667-IBMW SKIN LESIONS, 2 TO 4 04/06/20 18 95789-TPKV SKIN LESIONS, 2 TO 4 04/11/20 14025-XXHD SKIN LESIONS, 2 TO 4 01/25/20 87146-NKLL SKIN LESIONS, 2 TO 4 06/15/20 56158-PZED SKIN LESIONS, 2 TO 4 04/13/20 69695-MFHR SKIN LESIONS, 2 TO 4 11/16/19 00435-ZNOM SKIN LESIONS, 2 TO 4 09/07/20 84176-KFQX SKIN LESIONS, 2 TO 4 07/24/20 30939-KPXP SKIN LESIONS, 2 TO 4 12/16/19 69045-JJRF SKIN LESIONS, 2 TO 4 10/06/19 73088-LNOA SKIN LESIONS, 2 TO 4 04/10/20 09665-QWUE SKIN LESIONS, 2 TO 4 01/21/20 48837-WHKG SKIN LESIONS, 2 TO 4 07/16/20 02034-VTDY SKIN LESIONS, 2 TO 4 10/26/19 88906-QXVP SKIN LESIONS, 2 TO 4 02/17/20 67014-QRLC SKIN LESIONS, 2 TO 4 05/04/20 Next Appt Details Provider Name:Lisa Crouch , 01/04/2025 10:00:00 AM, [address] [place], [address], Insurance Providers Payer Name Payer Address Payer Phone Subscriber Number Group Number Insured Name Patient Relationship to Insured Coverage Start Date Coverage End Date [facility] [address] [place] [address] [id number] Dax Bajwa Spouse - patient is the spouse of the insured Medical (General) History Medical History History ICD Code measles hypertension diabetic type 1 Diabetic - IDDM Stroke Clogged Ear Surgical History Surgery Date(Month/Year) stent insertion 1995 right knee surgery 2012 Hospitalization History Reason Date(Month/Year) [facility]- Stroke 2020
--- OUTSIDE RECORDS SUMMARY | 2024-12-27 16:11 | XMS_ITS | Continuity of Care Document ---
Author Organization [facility] [address] [place] [address] Phone [phone] Care Team Providers Care Water Conservationist Name Role Phone Brenden Lucas M.D. Care Team Information Rece iver [phone] Problems Active Problems Provider Date Type 2 diabetes mellitus Ty Cooper M.D. Onset: 04/09/2022 Hyperlipidemia Ty Cooper M.D. Onset: 0 04/09/2022 Hypertensive disorder Ty Cooper M.D. On set: 04/09/2022 CVA - cerebrovascular accide nt due to cerebral artery occlusion Ty Cooper M.D. Onset: 04/09/2022 Seizure Ty Cooper M.D. Onset: 0 04/09/2022 Coronary atherosclerosis Ty Cooper M.D. Onset: 04/09/2022 Social History Type Date Description Comments Sex Unknown Lives With Spouse Tobacco Use Start: Unknown Never Smoked Cigarettes Smoking Status Reviewed: 04/28/23 Never Smoked Cigaret nela ETOH Use Denies alcohol use Allergies and adverse reactions Description No Known Drug Allergies Medications Active Medications SIG Qnty Indications Order ing Provider Date Mqozcjgy29ms/0.5ML Solution Auto-Inject inject weekly 6ml Ty Cooper M.D. 10/11/2024 Bsnaslg14kn Tablets 1 tablet by mouth every day 90tabs Ty Cooper M.D. 12/22/2023 Freestyle Danni 3/[place]/Glucose Monitoring Cyujzk9Cemcml Device use with sensors to check blood sugar dx:e11.9 1units Ty Cooper M.D. 12/22/2023 Freestyle Danni 3/Sensor/Glucose Monitoring Xaxiso1Rbcgry Misc Use as Directed To Test Blood Sugar Change Every 14 Days 6units Ty Cooper M.D. 12/22/2023 Bjlaghd4yh Tablets 1 tabs by mouth ever y day 90tabs Ty Cooper M.D. 10/21/2022 Atorvastatin Exmmpzp33lp Tablets 1 by mouth every day yT Cooper M.D. 10/21/[address] 1 daily Ty Cooper M.D. 04/09/2022 Vitamin D (Cholecalciferol)25 mcg (1000 Ut) Capsules 1 daily Ty Cooper M.D. 04/09/[address] tab by mouth every day at bedtime Ty Cooper M.D. 04/09/2022 Oxybutynin Chloride ER10mg Tablets ER 24HR 1 tab by mouth every day Ty Cooper M.D. 04/09/2022 Aspirin 81 Low Kqtw31xc Chewtabs 1 daily Ty Cooper M.D. 04/09/2022 Azor5-40mg Tablets 1 tab by mouth every day Ty Cooper M.D. 04/09/2022 Humalog Eypkbbm964Ikrt/ML Solution Pen-Inject Inject 14 Units Subcutaneously AT Supper (Discard Pen 28 Days After Opening And Start A New Pen) Dx: E11.9 15units E11Catrachito9 Ty Cooper M.D. 04/09/2022 Ayncsm225Rgzz/ML Solution 60 units every day 30ml E11.9 Ty Cooper M.D. 04/09/2022 Metformin UAY2374ur Tablets Take 1 Tablet By Mouth Two Times A Day 180tabs Ty Cooper M.D. History Medications Mounjaro7.5mg/0.5ML Solution Pen-Inject inject weekly 6ml Ty frank M.D. 06/29/2024 - 10/11/2024 Lxxmyihzx4uq/0.5ML Solution Pen-Inject inject 1 pen subcutaneously once a week Dx: E11.9 6ml E11Flor Cooper M.D. 04/04/2024 - 06/29/2024 Kdddbdpe2sa/0.5ML Solution Pen-Inject 1 injection every week as directed 2ml Ty Cooper M.D. 03/27/2024 - 04/04/2024 Vital Signs Date Vital Result Comment 10/11/2024 1:07pm BP Systolic 120 mmHg BP Diastolic 80 mmHg Heart Rate 80 /min Height 63 inches 5'3 Weight 160.00 lb per pt BMI (Body Mass Index) 28.3 kg/m2 Results Test Acquired Date Facility Test Result H/L Range N ote Hemoglobin A1c 10/11/2024 Inhouse Hemoglobin A1c 7.8% Glucose Fingerstick 10/11/2024 Inhouse Glucose Fingerstick 191 Glucose Fingerstick 06/29/2024 Inhouse Glucose Fingerstick 180 Hemoglobin A1c 03/27/2024 Inhouse Hemoglobin A1c 9.6% Glucose Fingerstick 03/27/2024 Inhouse Glucose Fingerstick 240 Glucose Fingerstick 12/22/2023 Inhouse Glucose Fingerstick 239 Hemoglobin A1c 12/22/2023 Inhouse Hemoglobin A1c 8.2% Glucose Fingerstick 08/04/2023 Inhouse Glucose Fingerstick 148 Hemoglobin A1c 08/04/2023 Inhouse Hemoglobin A1c 7.4% Glucose Fingerstick 04/28/2023 Inhouse Glucose Fingerstick 129 Hemoglobin A1c 04/28/2023 Inhouse Hemoglobin A1c 7.8% Glucose Fingerstick 01/25/2023 Inhouse Glucose Fingerstick 295 Hemoglobin A1c 01/25/2023 Inhouse Hemoglobin A1c 9.6 Hemoglobin A1c 07/20/2022 Inhouse Hemoglobin A1c 8.0% Glucose Fingerstick 07/20/2022 Inhouse Glucose Fingerstick 327 Hemoglobin A1c 04/09/2022 Inhouse Hemoglobin A1c 7.0% Glucose Fingerstick 04/09/2022 Inhouse Glucose Fingerstick 217 Medical Devices Description No Information Available Encounters Type Date Location Provider Dx Diagnosis Office Visit 10/11/2024 1:00p Main Office Ty Cooper M.D. E11.9 Type 2 diabetes mellitus without complications Assessments Date Code Description Provider 10/11/2024 E11.9 Type 2 diabetes mellitus without complications Ty Cooper M.D. Plan of Treatment Future Appointment(s):* 02/06/2025 2:15 pm - Ty Cooper M.D. at Main Office 06/29/2024 - Ty Cooper M.D.* E11.8 Complication due to diabetes mellitus * Functional Status Description No Information Available Mental Status Description No Information Available Referrals Description No Information Available
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
--- OUTSIDE RECORDS SUMMARY | 2024-12-27 16:11 | XMS_ITS ---
Author Organization [facility] Address [address] [facility] [place] [address] Care Team Providers Care Sociology Instructor Name Role Phone Shayy MYERS, Brenden Primary Care Provider Lisa Lema Unavailable [phone] Allergies No Known Allergies REASON FOR VISIT At Risk Footcare Medications Medication SIG (Take, Route, Frequency, Duration) Notes Start Date End Date Status Trulicity Active Custom Orthotics Act quita Leesa 5-20 MG Orally twice a day Active Vitamin D Active Omeprazole Active metFORMIN HCl 1000 MG Orally twice a day Active Lipitor Active Lantus 56 units once a day Act quita Insulin 56 units Act quita Aspir-81 81 MG 1 tablet Orally Once a day for 30 day(s) Active Vicodin Not-Taking Aspirin 325 MG 1 tablet as needed Orally every 4 hrs Not-Taking Bystolic Not-Taking Biofreeze Not-Taking Dupixent Active Extra Depth Orthopedic Shoes (1 Pair) with Customized Heat Molded Multidensity Innersoles (3 Pair) as directed Dx: NIDDM/Polyneuropathy (E11.42), Hammertoe Foot Deformity (M20.41,M20.42), Preulcerative Skin Lesion(s) (L85.1 02/14/2024 Active Keralac Active Actos Active Social History Tobacco Use: Social History Observation [...] Are you an other tobacco user? No Vital Signs Height 5ft 3in in 08/31/2024 Weight 160 lbs 08/31/2024 BMI 28.34 kg/m2 08/31/2024 Procedures Procedure Date Ordered Date Performed Result Body Sit e 03380-IQTXCML NAIL, 6 OR MORE 08/31/2024 N/A 93140-PGYQ SKIN LESIONS, OVER 4 08/31/2024 N/A Encounters Encounter Location Date Provider Diagnosis [facility] [place] [address] [place] [address] 08/31/2024 Lisa Crouch Tinea unguium B35.1 and Type 1 diabetes mellitus with diabetic polyneuropathy E10.42 Assessments Encounter Date Diagnosis (ICD Code) Assessment Notes Treatment Notes Treatment Clinical Notes Section Notes 08/31/2024 Tinea unguium (ICD-10 - B35.1) 08/31/2024 Type 1 diabetes mellitus with diabetic polyneuropathy (ICD-10 - E10.42) Plan Of Treatment Pending Test Test Name Order Date 29598-[id number] NAIL, 6 OR MORE 08/31/2024 85041-PEMZ SKIN LESIONS, OVER 4 08/31/20 24 Next Appt Details Follow Up: 3 Months, Reason: Provider Name:Lisa Crouch , 01/04/2025 10:00:00 AM, [address] [place] [address], [id number], Procedure Notes * Category Sub-Category Detail Notes Debride Nail 6-10 Nail debridement Due to the cl inical pathology outlined in the exam findings, performance of this nail treatment by a nonprofessional would put this patients foot and overall health at risk. Therefore, debridement to affected nail(s), as described in exam, was performed extensively to reduce/remove overall nail length, girth, thickness, subungual debris, and necrotic tissue, by manual and/or electrical means through the use of a nail nipper and/or dremel-type automatic corn grinder operator, to a more viable healthy nail plate or bed tissue 6-10 nails in total. Silver nitrate was used for any petechial bleeding as necessary. Definitive antifungal treatment options, both pharmaceutical and surgical, have been reviewed and discussed with the patient. The patient solely prefers the use of intermittent/as needed professional debridement services for their nail condition and understands the need for additional periodic treatments to maintain effectiveness in symptomatic relief - 69034 Patient chooses debridement treatmen t only; no pharmaceutical tx Keratoma Treatment Parring or Cutting o f Benign Hyperkeratotic Lesion(s) (-57) More than 4 Lesions - The Benign hyperkeratotic lesions, ( 5 ) in total, locations as stated and described in exam, were pared, and/or cut utilizing a sterile 15 blade, tissue nippers, and/or power Quick Hit instrumentation - 88512 Progress Notes * Shelia GREEN MDOB: (73 yo F)Acc No.[id number]:08/31/2024 Progress Note Patient:?Shelia GREEN M Provider:?Lsia Crouch DPM :1950???Age:73 Y???Sex:Female D ate:08/31/2024 Address:[address] [place], [place] [id number] Pcp:Brenden Lucas MD Subjective: * Chief Complaints: * ???At Risk Footcare * HPI: ???At Risk footcare:?Pt States Last PCP Visit:?Date?06/19/2024 * ROS:?General/Constitutional:?Nausea?denies.?Vomiting?denies.?Hunger Thirst?denies.?Loss appetite?denies.?Chills?denies.?Fatigue?denies.?Fever?denies.?Night Sweats?denies.?Unexplained weight loss?denies.?Unexplained weight gain?denies.?HEENTM:?Dentures?denies.?Dizziness?denies.?Glasses/contacts?denies.?Retinopathy?den ies.?Blurred/double vision?denies.?TMJ?denies.?Discharge/drainage?denies.?Implants?denies.?Sore throat?denies.?Dental implants?denies.?Hard of hearing ?denies.?Difficulty chewing/swallowing/speaking?denies.?Nose bleeds?denies.?Sore mouth?denies.?Respiratory:?On O xygen?denies.?Pneumonia/pleurisy?denies.?Bronchitis?denies.?Emphysema?denies.?Co ughing?denies.?Cough blood?denies.?Shortness of breath?denies.?Wheezing?denies.?Cardiovascular:?Pacemaker?denies.?MVP?denies.?WPW?denies.?CHF?denies.?Heart attack?denies.?Septal defect?denies.?Rapid beat?denies.?Chest pain ?denies.?Atrial Fib.?denies.?Murmur/Palpitations?denies.?Gastrointestinal:?Hemorrhoids?denies.?Stomach/Abdominal pain?denies.?Dark blood stool?denies.?Irritable bowel ?denies.?Constipation?denies.?Diarrhea?denies.?Hematology:?Swelling?denies.?Clots?denies.?Varicose Veins?denies.?Bruising?denies.?Bleeding problem?denies.?Genitourinary:?Blood urine?denies.?Frequent/Painfu/urination/bladder control?denies.?Kidney stones?denies.?Infection (UTI)?denies.?Nephropathy?denies.?sex trans dis (STD)?denies.?Prostate?denies.?Musculoskeletal:?Hammertoes?admits.?Bunions?denies.?Back Pain?denies.?Muscle Cramps/ Resting?denies.?Muscle cramps / walking?denies.?Generalized aches and pains?admits.?Weakness?denies.?Integ.:?Carter?denies.?Scars?denies.?Corns/calluses?admits.?Ingrown nails?denies.?Painful nails?denies.?Open Sores?denies.?Rashes?denies.?Neurologic:?Difficulty sleeping?denies.?Brain disorder?denies.?Numbness?denies.?Balance t rouble?denies.?Confusion?denies.?Fainting/blackouts?denies.?Tingling?denies.?Elkin mors?denies.? * Medical History:? * Surgical History:?stent inse rtion 1996right knee surgery 2012 * Hospitalization/Major Diagno stic Procedure:?[facility]- Stroke 2020 * Family History:?Mother: dece ased, diagnosed with Family history of arthritis.?Father: .?Paternal Grand Mother: arthritis.?Paternal Grand Father: , heart attack, diagnosed with Unspecified heart disease.?Paternal aunt: unknown, diabetes, diagnosed with Diabetic - NIDDM.?Siblings: unknown, hypertension.? * Social History:?Tobacco Use:?Tobacco Use/Smoking?Are you a:?nonsmoker ?Additional Findings: Tobacco Non-User?Current non-smoker ?Tobacco use other than smoking?Are you an other tobacco user??No ???Drugs/Alcohol:?Drugs?Have you used drugs other than those for medical reasons in the past 12 months??No ?Alcohol Screen?Did you have a drink containing alcohol in the past year??No ?Points?0 ?Interpretation?Negative ???Miscellaneous:?Caffeine: yes, 1-2 cups per day. ?Children: yes. ?Exercise: yes, active at home. ?Marital status: . ?Occupation: lead worker of housekeeping and laundry , Retired. * Medications:?TakingDupixent Aspir-81 81 MG Tablet Delayed Release 1 tablet Orally Once a day Insulin 56 units Lantus 56 units once a day Lipitor metFORMIN HCl 1000 MG Tablet Orally twice a day Omeprazole Vitamin D Leesa 5-20 MG Tablet Orally twice a day Custom Orthotics Trulicity Actos Keralac Extra Depth Orthopedic Shoes (1 Pair) with Customized Heat Molded Multidensity Innersoles (3 Pair) as directed Dx: NIDDM/Polyneuropathy (E11.42), Hammertoe Foot Deformity (M20.41,M20.42), Preulcerative Skin Lesion(s) (L85.1 Taking Dupixent Taking Aspir-81 81 MG Tablet Delayed Release 1 tablet Orally Once a day Taking Insulin 56 units Taking Lantus 56 units once a day Taking Lipitor Taking metFORMIN HCl 1000 MG Tablet Orally twice a day Taking Omeprazole Taking Vitamin D Taking Leesa 5-20 MG Tablet Orally twice a day Taking Custom Orthotics Taking Trulicity Taking Actos Taking Keralac Taking Extra Depth Orthopedic Shoes (1 Pair) with Customized Heat Molded Multidensity Innersoles (3 Pair) as directed Dx: NIDDM/Polyneuropathy (E11.42), Hammertoe Foot Deformity (M20.41,M20.42), Preulcerative Skin Lesion(s) (L85.1 Not-Taking/PRNBiofreeze Bystolic Aspirin 325 MG Tablet Delayed Release 1 tablet as needed Orally every 4 hrs Vicodin Medication List reviewed and reconciled with the patientNot-Taking/PRN Biofreeze Not-Taking/PRN Bystolic Not-Taking/PRN Aspirin 325 MG Tablet Delayed Release 1 tablet as needed Orally every 4 hrs Not-Taking/PRN Vicodin Medication List reviewed and reconciled with the patient * Allergies:?N.K.D.A.yes[Aller gies Verified] Objective: * Vitals:?Ht: 5ft 3in, Wt:160, BMI:28.34, Shoe size: 8, BS: not taken, Ht-cm: 160.02 cm, Wt-k.57 kg. * ???Past Orders: ???Lab:HEMOGLOBIN A1C (GLYCO HEMOGLOBIN) (Order Date - 09/03/2023) (Collection Date & Time - 09/03/2023 11:26 AM) ? Value Reference Range ?TOTAL HEMOGLOBIN (HGBA1C) 7.0 * Examination: ???Ophthalmology Referral: ?DIABETES EYE EXAM?Procedure Performed:?Yes ?Date of Exam Performed?09/27/2023 ?Findings of Diabetic Eye Exam:?retinopathy left eye?General Examination: ?GENERAL APPEARANCE:?Reveals a pleasant, alert, well nourished, well- developed, well hydrated individual, who demonstrates proper attention to hygiene/body habitus, and is in no acute distress, Pt serves as own historian for office visit today.?ORIENTED:?person, place, and time.?Neurological: ?SENSORY:?exam demonstrates. reduced vibration lower extremity, 5.07 monofilament test performed at plantar aspects of 5 varied sites per foot shows sensation, absent, , at Forefoot, B/L, Pt relates, increased . anesthesia, pins and needles sensation, burning.?Nails: ?NAILS are:?elongated,overgrown,dystrophic,greater than 3mm thick,discolored and friable with crumbly malodorous subungual debris, with dull to no pain on palpation due to neuropathy , ,2-5 B/L.?Vascular: ?DP PULSES(B):?2/4, B/L.?PT PULSES(B):?2/4, B/L.?EDEMA(C):?2/4, non-pitting, Right.?Dermatologic: ?SKIN FINDINGS:?Skin exam reveals Keratotic lesion(s) located at, Medial plantar, TA, , SUB MTH (s), 1, B/L , , Plantar Heel(s), B/L.? Assessment: * Assessment: 1.?Tinea unguium - B35.1???2 .?Type 1 diabetes mellitus with diabetic polyneuropathy - E10.42 (Primary)??? Plan: * Treatment: 2.?Tinea unguium?Procedure: 64075-WHPHMOW NAIL, 6 OR MORE * Procedures:?Debride Nail 6-10:?Nail debridement?Due to the clinical pathology outlined in the exam findings, performance of this nail treatment by a nonprofessional would put this patients foot and overall health at risk. Therefore, debridement to affected nail(s), as described in exam, was performed extensively to reduce/remove overall nail length, girth, thickness, subungual debris, and necrotic tissue, by manual and/or electrical means through the use of a nail nipper and/or dremel-type automatic corn grinder operator, to a more viable healthy nail plate or bed tissue 6-10 nails in total. Silver nitrate was used for any petechial bleeding as necessary. Definitive antifungal treatment options, both pharmaceutical and surgical, have been reviewed and discussed with the patient. The patient solely prefers the use of intermittent/as needed professional debridement services for their nail condition and understands the need for additional periodic treatments to maintain effectiveness in symptomatic relief - 82783.?Patient chooses ?debridement treatment only; no pharmaceutical tx.?Keratoma Treatment:?Parring or Cutting of Benign Hyperkeratotic Lesion(s)?(-57) More than 4 Lesions - The Benign hyperkeratotic lesions, ( 5 ) in total, locations as stated and described in exam, were pared, and/or cut utilizing a sterile 15 blade, tissue nippers, and/or power dremel instrumentation - 00571.? * Procedure Codes:?13084 DEBRI DE NAIL, 6 OR MORE, Modifiers: XS 79047 TRIM SKIN LESIONS, OVER 4, Modifiers: XS * Follow Up:?3 Months * Images: * Sign off status: Completed true * Provider:?Lisa Crouch DPM Date:?2023 Generated for Carol bowie/Makayla/Amisha on:?12/27/2024 04:10 PM EDT History and Physical Notes * HPI (History of Present Illness) Category Sub-Category Detail Notes Category Not es At Risk footcare Pt States Last PCP Visit: Date: 4 Examination Category Sub-Category Detail Notes Category Not es Neurological SENSORY: exam demonstrate s. reduced vibration lower extremity, 5.07 monofilament test performed at plantar aspects of 5 varied sites per foot shows sensation, absent, , at Forefoot, B/L, Pt relates, increased . anesthesia, pins and needles sensation, burning BABINSKI REFLEX: TINEL'S COMPRESSION: Dermatologic SKIN FINDINGS: Skin exam reveal s Keratotic lesion(s) located at, Medial plantar, TA, , SUB MTH (s), 1, B/L , , Plantar Heel(s), B/L General Examination GENERAL APPEARANCE: Reveals a pleasant, alert, well nourished, well-developed, well hydrated individual, who demonstrates proper attention to hygiene/body habitus, and is in no acute distress, Pt serves as own historian for office visit today ORIENTED: person, place, and t eron Ophthalmology Referral DIABETES EYE EXAM Procedure Perform ed:: Yes ?Date of Exam Performed: 09/27/2023 Findings of Diabetic Eye Exam:: retinopa thy left eye Vascular DP PULSES (B): 2/4, B/L PT PULSES (B): 2/4, B/L EDEMA (C): 2/4, non-pitting, Ri ght Nails NAILS are: elongated,overgr own,dystrophic,greater than 3mm thick,discolored and friable with crumbly malodorous subungual debris, with dull to no pain on palpation due to neuropathy , ,2-5 B/L
== END 2024-12-27 14:28 | disposition home or self-care (01) ==
LOC: HO.HMCH 13:31
DX: E11.620 Type 2 diabetes mellitus with diabetic dermatitis (principal); G40.909 Epilepsy, unspecified, not intractable, without status epilepticus; I63.9 Cerebral infarction, unspecified; E78.00 Pure hypercholesterolemia, unspecified; I10 Essential (primary) hypertension; L30.9 Dermatitis, unspecified; Z12.39 Encounter for other screening for malignant neoplasm of breast

== ENCOUNTER → 2024-12-27 13:30 | Outpatient (BNVA) | payer OTHER, SELFPAY | DX: E11.9 Type 2 diabetes mellitus without complications (principal); G40.909 Epilepsy, unspecified, not intractable, without status epilepticus; E78.00 Pure hypercholesterolemia, unspecified; I10 Essential (primary) hypertension; L30.9 Dermatitis, unspecified; Z86.73 Personal history of transient ischemic attack (TIA), and cerebral infarction without residual deficits; Z79.82 Long term (current) use of aspirin; Z79.899 Other long term (current) drug therapy | CPT/HCPCS: 83036; 96127 ==

== ENCOUNTER 2025-01-22 10:52 | Outpatient (REF) | payer OTHER, SELFPAY ==
--- OUTSIDE RECORDS SUMMARY | 2025-01-22 13:00 | XMS_ITS ---
Author Organization [facility] Address [address] [place] [address] Care Team Providers Care Data Entry Manager Name Role Phone Sheorn Pruitt Primary Care Provider Unavailab miguel angel Lisa Crouch Unavailable [phone] Allergies No Known Allergies REASON FOR VISIT At Risk Footcare, Toe Irritation Medications Medication SIG (Take, Route, Frequency, Duration) Notes Start Date End Date Status Vicodin Not-Taking Aspirin 325 MG 1 tablet as needed Orally every 4 hrs Not-Taking Extra Depth Orthopedic Shoes (1 Pair) with Customized Heat Molded Multidensity Innersoles (3 Pair) as directed Dx: NIDDM/Polyneuropathy (E11.42), Hammertoe Foot Deformity (M20.41,M20.42), Preulcerative Skin Lesion(s) (L85.1 02/14/2024 Active Bystolic Not-Taking Biofreeze Not-Taking Custom Orthotics Act quita Actos Not-Taking Trulicity Not-Taking Extra Depth Orthopedic Shoes (1 Pair) with Customized Heat Molded Multidensity Innersoles (3 Pair) as directed Dx: NIDDM/Polyneuropathy (E11.42), Hammertoe Foot Deformity (M20.41,M20.42), Preulcerative Skin Lesion(s) (L85.1 01/04/2025 Active Keralac Not-Taking Leesa 5-20 MG Orally twice a day Not-Taking Vitamin D Active Omeprazole Not-Takin g metFORMIN HCl 1000 MG Orally twice a day Active Lipitor Active Dupixent Active amLODIPine Besylate 5 MG 1 tablet Orally Once a day Active Insulin 56 units Act quita Aspir-81 81 MG 1 tablet Orally Once a day for 30 day(s) Active Lantus 56 units once a day Act quita AZO Cranberry Active Atorvastatin Calcium 80 MG 1 tablet Orally Once a day Active Losartan Potassium 25 MG 1 tablet Orally Once a day Active FreeStyle InsuLinx Test Active Calcium Active Fenofibrate Active Wixela Inhub Active HumaLOG Active Mounjaro Active Social History Tobacco Use: Social History Observation Description Date Details (start date - stop date) Never Smoker NA - NA Tobacco Use/Smoking Question Answer Notes Are you a: nonsmoker Additional Findings: Tobacco Non-User Current no n-smoker Tobacco use other than smoking: Question Answer Notes Are you an other tobacco user? No Vital Signs Height 5ft3in in 01/04/2025 Weight 160 lbs 01/04/2025 BMI 28.34 kg/m2 01/04/2025 Blood pressure systolic 124 mm Hg 01/05/20 25 Blood pressure diastolic 79 mm Hg 025 Procedures Procedure Date Ordered Date Performed Result Body Sit e 89121-FCJZNBR NAIL, 6 OR MORE 01/04/2025 N/A 37606-IZSC SKIN LESIONS, OVER 4 01/04/2025 N/A Encounters Encounter Location Date Provider Diagnosis [facility] [address] [address] 01/04/2025 Lisa Black Type 1 diabetes mellitus with diabetic polyneuropathy E10.42 ; Other hammer toe(s) (acquired), right foot M20.41 ; Tinea unguium B35.1 and Other hammer toe(s) (acquired), left foot M20.42 Assessments Encounter Date Diagnosis (ICD Code) Assessment Notes Treatment Notes Treatment Clinical Notes Section Notes 01/04/2025 Type 1 diabetes mellitus with diabetic polyneuropathy (ICD-10 - E10.42) 01/04/2025 Other hammer toe(s) (acquired), right foot (ICD-10 - M20.41) Patient Educated with: DIABETIC FOOT CARE INSTRUCTIONS. pdf (DIABETIC FOOT CARE INSTRUCTIONS. pdf) 01/04/2025 Tinea unguium (ICD-10 - B35.1) 01/04/2025 Other hammer toe(s) (acquired), left foot (ICD-10 - M20.42) Plan Of Treatment Medication Medication Name Sig Start Date Stop Date Notes Extra Depth Orthopedic Shoes (1 Pair) with Customized Heat Molded Multidensity Innersoles (3 Pair) as directed Dx: NIDDM/Polyneuropathy (E11.42), Hammertoe Foot Deformity (M20.41,M20.42), Preulcerative Skin Lesion(s) (L85.1 01/04/2025 Treatment Notes Assessment Notes Other hammer toe(s) (acquired), right fo ot Patient Educated with: DIABETIC FOOT CARE INSTRUCTIONS.pdf (DIABETIC FOOT CARE INSTRUCTIONS.pdf) Pending Test Test Name Order Date [id number]-[id number] NAIL, 6 OR MORE 01/04/2025 08814-YOFI SKIN LESIONS, OVER 4 01/05/20 25 Next Appt Details Follow Up: 3 Months, Reason: Provider Name:Lisa Christopher Miko , 04/12/2025 09:30:00 AM, [address] [place] [address], [phone], Provider Name:Lisa Christopher Miko , 06/14/2025 10:00:00 AM, [address] [place] [address], [phone], Procedure Notes * Category Sub-Category Detail Notes Debride Nail 6-10 Nail debridement Due to the cl inical pathology outlined in the exam findings, performance of this nail treatment is medically necessary as its management by an unskilled/untrained nonprofessional would put this patients foot and overall health at risk. Therefore, debridement to affected nail(s), as described in exam ( T1, T2, T3, T4, T6, T7, T8, T9, ), was performed exclusively by the physician of record to reduce/remove overall nail length, girth, thickness, subungual debris, and necrotic tissue, by manual and/or electrical means through the use of a nail nipper and/or dremel-type pulp grinder feeder, to a more viable healthy nail plate [...] to maintain effectiveness in symptomatic relief - Patient chooses debridement treatmen t only; no pharmaceutical tx Keratoma Treatment Parring or Cutting o f Benign Hyperkeratotic Lesion(s) (-57) More than 4 Lesions - Due to the a t risk nature of the patients medical condition as documented in the exam findings, performance of this keratoderma treatment is medically necessary as its management by an unskilled/untrained nonprofessional would put this patients foot and overall health at risk. Therefore, the benign hyperkeratotic lesions, (5) in total, locations as stated and described in the exam ( Medial plantar, TA, , SUB MTH (s), 1, B/L , , Plantar Heel(s), B/L ), were pared, and/or cut utilizing a sterile 15 blade, tissue nippers, and/or power dremel instrumentation by the physician of record - 23335 Progress Notes * Shelia GREEN MDOB: (74 yo F)Acc No.[id number]:01/04/2025 Progress Note Patient:?Shelia GREEN Provider:?Lisa Crouch DPM :1950???Age:74 Y???Sex:Female D ate:01/04/2025 Address:[address] [place] [address] [place], [id number] Pcp:Sheron Pruitt Subjective: * Chief Complaints: * ???At Risk FootcareToe Irrit ation * HPI: ???At Risk footcare:?Pt States Last PCP Visit:?Date?12/21/2024 ???Toe pain:?Location:?B/L feet.?Duration:?several years.?Course:?worse.?Aggravated by:?shoes, any pressure.?Treatments:?change in shoes.? * ROS:?General/Constitutional:?Nausea?denies.?Vomiting?denies.?Hunger Thirst?denies.?Loss appetite?denies.?Chills?denies.?Fatigue?denies.?Fever?denies.?Night Sweats?denies.?Unexplained weight loss?denies.?Unexplained weight gain?denies.?HEENTM:?Dentures?denies.?Dizziness?denies.?Glasses/contacts?denies.?Retinopathy?de nies.?Blurred/double vision?denies.?TMJ?denies.?Discharge/drainage?denies.?Implants?denies.?Sore throat?denies.?Dental implants?denies.?Hard of hearing ?denies.?Difficulty chewing/swallowing/speaking?denies.?Nose bleeds?denies.?Sore mouth?denies.?Respiratory:?On Oxygen?denies.?Pneumonia/pleurisy?denies.?Bronchitis?denies.?Emphysema?denies.?C oughing?denies.?Cough blood?denies.?Shortness of breath?denies.?Wheezing?denies.?Cardiovascular:?Pacemaker?denies.?MVP?denies.?WPW?denies.?CHF?denies.?Heart attack?denies.?Septal defect?denies.?Rapid beat?denies.?Chest pain ?denies.?Atrial Fib.?denies.?Murmur/Palpitations?denies.?Gastrointestinal:?Hemorrhoids?denies.?Stomach/Abdominal pain?denies.?Dark blood stool?denies.?Irritable bowel ?denies.?Constipation?denies.?Diarrhea?denies.?Hematology:?Swelling?denies.?Clots?denies.?Varicose Veins?denies.?Bruising?denies.?Bleeding problem?denies.?Genitourinary:?Blood urine?denies.?Frequent/Painfu/urination/bladder control?denies.?Kidney stones?denies.?Infection (UTI)?denies.?Nephropathy?denies.?sex trans dis (STD)?denies.?Prostate?denies.?Musculoskeletal:?Hammertoes?admits.?Bunions?denies.?Back Pain?denies.?Muscle Cramps/ Resting?denies.?Muscle cramps / walking?denies.?Generalized aches and pains?admits.?Weakness?denies.?Integ.:?Carter?denies.?Scars?denies.?Corns/calluses?admits.?Ingrown nails?denies.?Painful nails?denies.?Open Sores?denies.?Rashes?denies.?Neurologic:?Difficulty sleeping?denies.?Brain disorder?denies.?Numbness?denies.?Balance trouble?denies.?Confusion?denies.?Fainting/blackouts?denies.?Tingling?denies.?Tr emors?denies.? * Medical History:? * Surgical History:?stent inse rtion 1996right knee surgery 2013 * Hospitalization/Major Diagno stic Procedure:?[facility]- Stroke 2020 [...] than smoking?Are you an other tobacco user??No ???Miscellaneous:?Caffeine: yes, 1-2 cups per day. ?Children: yes. ?Exercise: yes, active at home. ?Marital status: . ?Occupation: assistant housekeeping manager , Retired. * Medications:?TakingWixela In hub Fenofibrate Mounjaro HumaLOG FreeStyle InsuLinx Test Losartan Potassium 25 MG Tablet 1 tablet Orally Once a day Calcium Atorvastatin Calcium 80 MG Tablet 1 tablet Orally Once a day AZO Cranberry amLODIPine Besylate 5 MG Tablet 1 tablet Orally Once a day Dupixent Aspir-81 81 MG Tablet Delayed Release 1 tablet Orally Once a day Insulin 56 units Lantus 56 units once a day Lipitor metFORMIN HCl 1000 MG Tablet Orally twice a day Vitamin D Custom Orthotics Extra Depth Orthopedic Shoes (1 Pair) with Customized Heat Molded Multidensity Innersoles (3 Pair) as directed Dx: NIDDM/Polyneuropathy (E11.42), Hammertoe Foot Deformity (M20.41,M20.42), Preulcerative Skin Lesion(s) (L85.1 Taking Wixela Inhub Taking Fenofibrate Taking Mounjaro Taking HumaLOG Taking FreeStyle InsuLinx Test Taking Losartan Potassium 25 MG Tablet 1 tablet Orally Once a day Taking Calcium Taking Atorvastatin Calcium 80 MG Tablet 1 tablet Orally Once a day Taking AZO Cranberry Taking amLODIPine Besylate 5 MG Tablet 1 tablet Orally Once a day Taking Dupixent Taking Aspir-81 81 MG Tablet Delayed Release 1 tablet Orally Once a day Taking Insulin 56 units Taking Lantus 56 units once a day Taking Lipitor Taking metFORMIN HCl 1000 MG Tablet Orally twice a day Taking Vitamin D Taking Custom Orthotics Taking Extra Depth Orthopedic Shoes (1 Pair) with Customized Heat Molded Multidensity Innersoles (3 Pair) as directed Dx: NIDDM/Polyneuropathy (E11.42), Hammertoe Foot Deformity (M20.41,M20.42), Preulcerative Skin Lesion(s) (L85.1 Not-Taking/PRNOmeprazole Leesa 5-20 MG Tablet Orally twice a day Trulicity Actos Keralac Biofreeze Bystolic Aspirin 325 MG Tablet Delayed Release 1 tablet as needed Orally every 4 hrs Vicodin Medication List reviewed and reconciled with the patientNot-Taking/PRN Omeprazole Not-Taking/PRN Leesa 5-20 MG Tablet Orally twice a day Not-Taking/PRN Trulicity Not-Taking/PRN Actos Not-Taking/PRN Keralac Not-Taking/PRN Biofreeze Not-Taking/PRN Bystolic Not-Taking/PRN Aspirin 325 MG Tablet Delayed Release 1 tablet as needed Orally every 4 hrs Not-Taking/PRN Vicodin Medication List reviewed and reconciled with the patient * Allergies:?N.K.D.A.yes[Som bishpo Verified] Objective: * Vitals:?Ht: 5ft3in, Wt:160, BMI:28.34, Shoe size: 8, BP:124/79mm Hg, BS: not taken, Ht-cm: 160.02 cm, Wt-k.58 kg. * ???Past Orders: ???Lab:HEMOGLOBIN A1C (GLYCO HEMOGLOBIN) (Order Date - 10/28/2024) (Collection Date & Time - 10/28/2024 10:10 AM) ? Value Reference Range ?HEMOGLOBIN A1C % (HH) 7.0 * Examination: ???Ophthalmology Referral: ?DIABETES EYE EXAM?Procedure Performed:?No ?Eye Exam not performed:?No reason specified?General Examination: ?GENERAL APPEARANCE:?Reveals a pleasant, alert, well nourished, well- developed, well hydrated individual, who demonstrates proper attention to hygiene/body habitus, and is in no acute distress, Pt serves as own historian for office visit today.?ORIENTED:?person, place, and time.?FOOT EXAM:?Lower Extremity Neurological Exam performed:?Yes ?Visual exam of foot performed:?Yes ?Date?01/04/2025 ?Sensory testing performed:?sensations diminished ?Sensory and motor testing performed:?sensations diminished ?Pedal pulse taking performed:?2+ ?Footwear Evaluation?Footwear Evaluation performed:?Yes?Neurological: ?SENSORY:?exam demonstrates. reduced vibration lower extremity, 5.07 monofilament test performed at plantar aspects of 5 varied sites per foot shows sensation, absent, , at Forefoot, B/L, Pt relates, increased . anesthesia, pins and needles sensation, burning.?Nails: ?NAILS are:?elongated,overgrown,dystrophic,greater than 3mm thick,discolored and friable with crumbly malodorous subungual debris, with dull to no pain on palpation due to neuropathy ,T1, T2, T3, T4, T6, T7, T8, T9.?Vascular: ?DP PULSES (B):?2/4, B/L.?PT PULSES (B):?2/4, B/L.?EDEMA (C):?2/, non-pitting, Right.?Dermatologic: ?SKIN FINDINGS:?Skin exam reveals Keratotic lesion(s) located at, Medial plantar, TA, , SUB MTH (s), 1, B/L , , Plantar Heel(s), B/L.?Orthopedic: ?MUSCLE STRENGTH:?Generalized decrease in strength, B/L.?GAIT ABNORMALITY:?Pronated.?BUNION:?Medially prominent 1st MPJ, RIGHT, ROM 1st MPJ full,and without pain, or crepitus.?DIGITAL DEFORMITIES:?Digital contracture, PIPJ, 2-5 B/L, incompl-reducible to push-up test, no over, nor underlapping,?there is?evidence of shoe producing skin irritation.?FOOTWEAR EVALUATION:?worn, non-supportive, shoe gear properties exacerbate patient's foot/toe deformity.? Assessment: * Assessment: 1.?Other hammer toe(s) (acqu ired), right foot - M20.41 (Primary)???Specify :Chronic problem, Worse (4),Rx Management (4)???2.?Type 1 diabetes mellitus with diabetic polyneuropathy - E10.42???3.?Tinea unguium - B35.1???4.?Other hammer toe(s) (acquired), left foot - M20.42???Specify :Chronic problem, Worse (4),Rx Management (4)??? Plan: * Treatment: 2.?Type 1 diabetes mellitus with diabetic polyneuropathy?Procedure: 91774-LQQE SKIN LESIONS, OVER 4 3.?Tinea unguium?Procedure: 31868-KQYSCPE NAIL, 6 OR MORE * Procedures:?Debride Nail 6-10:?Nail debridement?Due to the clinical pathology outlined in the exam findings, performance of this nail treatment is medically necessary as its management by an unskilled/untrained nonprofessional would put this patients foot and overall health at risk. Therefore, debridement to affected nail(s), as described in exam ( T1, T2, T3, T4, T6, T7, T8, T9, ), was performed exclusively by the physician of record to reduce/remove overall nail length, girth, thickness, subungual debris, and necrotic tissue, by manual and/or electrical means through the use of a nail nipper and/or dremel-type pulp grinder feeder, to a more viable healthy nail plate [...] to maintain effectiveness in symptomatic relief - 16448.?Patient chooses ?debridement treatment only; no pharmaceutical tx.?Keratoma Treatment:?Parring or Cutting of Benign Hyperkeratotic Lesion(s)?(-57) More than 4 Lesions - Due to the at risk nature of the patients medical condition as documented in the exam findings, performance of this keratoderma treatment is medically necessary as its management by an unskilled/untrained nonprofessional would put this patients foot and overall health at risk. Therefore, the benign hyperkeratotic lesions, (5) in total, locations as stated and described in the exam ( Medial plantar, TA, , SUB MTH (s), 1, B/L , , Plantar Heel(s), B/L ), were pared, and/or cut utilizing a sterile 15 blade, tissue nippers, and/or power dremel instrumentation by the physician of record - 97593.? * Procedure Codes:?22036 DEBRI DE NAIL, 6 OR MORE, Modifiers: XS 27899 TRIM SKIN LESIONS, OVER 4, Modifiers: XS 3051F HG A1C>EQUAL 7.0%<8.0% * Preventive Medicine:? ??Counseling:?Discussion:?-14: Office or other outpatient visit for the evaluation and management of an established patient, which required a medically appropriate history and/or examination and MODERATE level of DECISION MAKING for: 1 OR MORE CHRONIC PROBLEM(S) THATS WORSENING, 2 STABLE CHRONIC PROBLEMS, A NEWLY DIAGNOSED PROBLEM WITH UNCERTAIN PROGNOSIS, AN ACUTE COMPLICATED INJURY WITH MULTIPLE TREATMENT OPTIONS, OR AN ACUTE PROBLEM WITH ACCOMPANYING SYSTEMIC SYMPTOMS, THAT POSE(S) A MODERATE RISK OF MORBIDITY. THIS CONDITION MAY ALSO INCLUDE RX DRUG MANAGEMENT, OR A DECISON FOR MINOR SURGERY. The visit on the day of the encounter encompassed interpreting the data and educating the patient as to the nature of their condition, treatment options available according to their individual PMH, meds, allergies, and overall health/living conditions, as well as any potential risks or complications that may occur from a failure to adhere to, and participate in, the recommended course of therapy. The discussion included a complete verbal, and/or written explanation of the examination results, any x-rays taken, the proposed diagnosis, and outline of the treatment plan. A schedule for future care needs was also explained. The patient verbalized an understanding of the instructions at this time and agreed to be an active participant in their treatment. If the patient should think of any questions or concerns after the visit, I have encouraged the patient to call the office.?Digital Surgery:?We elected to try conservative treatment at the present time, due to the patients age and medical history,.?Digital Treatment:?HT- I explained to the patient the possible etiologies of Hammertoes, including genetics/foot type/shoegear/activity level/exercise routine and the risks/benefits of all the different treatment options for their pain including: No treatment at all, Rest, Ice, New/supportive/wider/deeper Shoe gear, Digital Padding/Strapping/Taping/Bracing/Gel protective sleeves, Foot/Ankle AFO Bracing, Stretching exercises, Deep Tissue Massage, Arch support/shoe inserts with splay metatarsal padding, and Custom orthoses. I insisted that any digital devices be removed daily and not worn overnight for safety. The patient is to carefully examine the toes daily for any skin irritation while using any splinting or padding device. The advantages and disadvantages of each option were discussed and the patients questions re: shoe gear, padding, custom vs prefabricated inserts, activity level, and consistency in home treatment regimens for optimal success were answered to their verbally confirmed satisfaction, Recomm, rest, ice, proper shoegear, padding, orthotics, anti-inflammatories or tylenol as tolerated, topical analgesics, cortisone injections.?Shoe Gear Counseling:?SHOE Rx - The patient was counseled in great detail on their muscoloskeletal foot and toe deformities which coincided with the dermatological presentations visualized on exam. We discussed how their deformities put the integrity of their feet at risk for potential pedal complications which makes the accomidative diabetic shoes and cutomizable inserts medically necessary. We discussed the different shoe and insert treatment types and options, as well as the important advantages for adhering to regularly wearing these accomidative devices daily. The patient was made aware of the fact that a failure to abide by these recommedations may be deleterious to their foot health as they are able to prevent many pedal complications such as skin irritation, skin ulceration, infection, and even loss of toe/foot/leg/or life. Time was also spent with the patient dispensing and discussing proper diabetic footcare techniques including daily skin moisturization, daily foot inspection for any interruption in skin integrity including open lesions, or sign of infection such as redness/malodor/drainage/swelling. Also discussed and recommended were procedures regarding daily shoe inspection for the presence of internal foreign bodies as well as any visualized irregular shoe or insert wear. Patient questions re: shoes, inserts, and self foot inspections were answered to their satisfaction as the patient verbally confirmed a full understanding of the above information. A Rx for Extra Depth Orthopedic Shoes with 3 pair of custom heat-molded inserts was dispensed.? ??Screening/Special Tests:?Fall Risk?Screening:?No falls in the past year ?FALLS: Screening for Future Fall Risk?Have you had any falls with injury in the past year??No * Follow Up:?3 Months * Images: * Sign off status: Completed true * Provider:?Lisa Crouch DPM Date:?2024 Generated for Carol bowie/Makayla/Amisha on:?01/22/2025 01:00 PM EDT History and Physical Notes * HPI (History of Present Illness) Category Sub-Category Detail Notes Category Not es Toe pain Location: B/L feet Duration: several years Course: worse Aggravated by: shoes, any pressure Treatments: change in shoes At Risk footcare Pt States Last PCP Visit: Date: 5 Examination Category Sub-Category Detail Notes Category Not [...] 1, B/L , , Plantar Heel(s), B/L Orthopedic GAIT ABNORMALITY: Pronated BUNION: Medially prominent 1 st MPJ, RIGHT, ROM 1st MPJ full,and without pain, or crepitus FOOTWEAR EVALUATION: worn, non-supportiv e, shoe gear properties exacerbate patient's foot/toe deformity DIGITAL DEFORMITIES: Digital contracture , PIPJ, 2-5 B/L, incompl-reducible to push-up test, no over, nor underlapping, there is evidence of shoe producing skin irritation MUSCLE STRENGTH: Generalized decrease in strength, B/L General Examination GENERAL APPEARANCE: Reveals a pleasant, alert, well nourished, well-developed, well hydrated individual, who demonstrates proper attention to hygiene/body habitus, and is in no acute distress, Pt serves as own historian for office visit today FOOT EXAM: Lower Extremity Neurological Exa m performed:: Yes Visual exam of foot performed:: Yes Date: 01/04/2025 Sensory testing performed:: sensations d iminished Sensory and motor testing performed:: se nsations diminished Pedal pulse taking performed:: 2+ ORIENTED: person, place, and t eron Footwear Evaluation Footwear Evaluation performe d:: Yes Ophthalmology Referral DIABETES EYE EXAM Procedure Perform ed:: No Eye Exam not performed:: No reason speci fied Vascular DP PULSES (B): 2/4, B/L PT PULSES (B): 2/4, B/L EDEMA (C): 2/4, non-pitting, Ri ght Nails NAILS are: elongated,overgr own,dystrophic,greater than 3mm thick,discolored and friable with crumbly malodorous subungual debris, with dull to no pain on palpation due to neuropathy ,T1, T2, T3, T4, T6, T7, T8, T9
--- OUTSIDE RECORDS SUMMARY | 2025-01-22 13:00 | XMS_ITS | Clinical Summary ---
Author Organization [facility] 299 [facility] Address [address] [place] [address] Phone Care Team Providers Care Plant Electrician Name Role Phone Shahram Jeffery MD Primary Care Provider Allergies No known active allergies Medications amLODIPine (NORVASC) 5 mg tablet 5 Active atorvastatin (LIPITOR) 80 mg tablet Take 1 tablet (80 mg total) by mouth 1 (one) time each day. 4 Active FreeStyle Danni 3 [place] misc use as directed to test blood [...] [address] [place] [address] Tarun Marx MD from Last [...] - 2023-2 5 season) 2024 Influenza Vaccine (Season Ended) 2025 RSV Immunization Adult Patients (1 - 1-dose [...] age to complete this topic Meningococcal B Vaccine Aged Out No l onger eligible based on patient's age to complete this topic RSV Immunization Patients Under 20 months Aged Out No longer eligible b ased on patient's age to complete this topic Varicella Vaccines Aged Out No longer eligible based on patient's age to complete this topic Procedures Procedure Name Priority Date/Time Associated Diagnosis Comments [facility] S[facility] Routine 01/08/2022 1:30 PM EDT Encounter for screening mammogram for malignant neoplasm of breast from Last 3 Months or Most Recently Relevant to Health Maintenance Results * [facility] (01/08/2022 1:30 PM EDT) Anatomical Region Laterality Modality Mammography 01/08/2022 11:0 9 AM EDT Narrative 01/08/2022 1:30 PM EDT [facility] Diagnostic Imaging Department [address] [place], [place] [address] Patient: ??SHELIA GREEN ?/Age/Sex: 1950 - 71 - F Unit#: ??[id number] ? Location/Status: ??SPDIMAM/REG CLI ? Mnemonic/Ordering Site: ??DIGSC/SPMAM Ordering Physician: ??SHAHRAM JEFFERY MD [facility] Screening Digital - 01/08/22 - 1134 EXAM: [facility] Screening Digital EXAM DATE AND TIME: 01/08/2022 11:34 AM HISTORY: ??Screening. COMPARISON: ??05/05/19, 05/02/18, 04/21/17, 03/09/16 TECHNIQUE: CC and MLO views of both breasts were obtained using full field digital mammography. Bilateral digital breast tomosynthesis was performed in the MLO projection. Computer aided detection with the [employer]First Opinion was employed. TISSUE DENSITY: a. The breasts [...] Routine screening mammogram BILATERAL in 1 year. 39763, 82161 3342F, 7025F Dictating Physician: ??YAN LOCO MD Electronically Signed by: ??YAN LOCO MD Dic Date/Time: ??01/08/22 1330 Sign date/Time: ??01/08/22 1330 Procedure Note Yan Loco MD - 09/16/2022 [facility] Diagnostic Imaging Department [address] [place] [address] Patient: SHELIA GREEN/Age/Sex: 1950 - 71 - F Unit#: [id number] Location/Status: SPDIMAM/REG CLI Mnemonic/Ordering Site: [facility] Ordering Physician: SHAHRAM JEFFERY MD [facility] Screening Digital - 01/08/22 - 1134 EXAM: [facility] Screening Digital EXAM DATE AND TIME: 01/08/2022 11:34 AM HISTORY: Screening. COMPARISON: 05/05/19, 05/02/18, 04/21/17, 03/09/16 TECHNIQUE: CC and MLO views of both breasts were obtained using fullfield digital mammography. Bilateral digital breast tomosynthesis was performedin the MLO projection. Computer aided detection with the [employer]-Mob[employer] Technologyas employed. TISSUE DENSITY: a. The breasts are [...] Routine screening mammogram BILATERAL in 1 year. [address]0301, 74472 3342F, 7025F Dictating Physician: YAN LOCO MD Electronically Signed by: YAN LOCO MD Dic Date/Time: 01/08/22 133 Sign date/Time: 01/08/221329 Shahram Jeffery MD IMG BI PROCEDURES Final Res ult from Last 3 Months or Most Recently Relevant to Health Maintenance Insurance [facility] MEDICARE ADVANTAGE on file [facility] Care Teams Plant Electrician Relationship Specialty Start Date End Date Shahram Jeffery MD [address] [place] [address] PCP - General Internal Medicine 11/24/24
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
--- OUTSIDE RECORDS SUMMARY | 2025-01-22 13:01 | XMS_ITS | Patient Health Record ---
Author Organization [facility] Address [address] [facility] [place] [address] Care Team Providers Care Store Grocery Merchandiser Name Role Phone Sheron Pruitt Primary Care Provider Unavailab miguel angel CrouchLisa Unavailable [phone] Allergies No Known Allergies Results Component Value Reference Range Notes HEMOGLOBIN A1C (GLYCOHEMOGLO BIN) Reviewed date:01/04/2025 10:11:11 AM Interpretation: Performing Lab: Notes/Report: HEMOGLOBIN A1C % (HH) 7.0 Reason For Referral No Information Medications Medication SIG (Take, Route, Frequency, Duration) Notes Start Date End Date Status Losartan Potassium 25 MG 1 tablet Orally Once a day Active FreeStyle InsuLinx Test Active Aspirin 325 MG 1 tablet as needed Orally every 4 hrs Not-Taking Calcium Active Fenofibrate Active Extra Depth Orthopedic Shoes (1 Pair) with Customized Heat Molded Multidensity Innersoles (3 Pair) as directed Dx: NIDDM/Polyneuropathy (E11.42), Hammertoe Foot Deformity (M20.41,M20.42), Preulcerative Skin Lesion(s) (L85.1 02/14/2024 Active Wixela Inhub Active Keralac Not-Taking HumaLOG Active Bystolic Not-Taking Mounjaro Active Biofreeze Not-Taking Custom Orthotics Act quita Leesa 5-20 MG Orally twice a day Not-Taking Actos Not-Taking Trulicity Not-Taking Vitamin D Active Omeprazole Not-Takin g Vicodin Not-Taking metFORMIN HCl 1000 MG Orally twice a day Active Extra Depth Orthopedic Shoes (1 Pair) with Customized Heat Molded Multidensity Innersoles (3 Pair) as directed Dx: NIDDM/Polyneuropathy (E11.42), Hammertoe Foot Deformity (M20.41,M20.42), Preulcerative Skin Lesion(s) (L85.1 01/04/2025 Active Insulin 56 units Act quita Aspir-81 81 MG 1 tablet Orally Once a day for 30 day(s) Active Lipitor Active Lantus 56 units once a day Act quita AZO Cranberry Active Atorvastatin Calcium 80 MG 1 tablet Orally Once a day Active Dupixent Active amLODIPine Besylate 5 MG 1 tablet Orally Once a day Active Immunizations Vaccine Route Administration Date Status [...] Problem Acquired hammer toe of right foot (5829817671856796) Other hammer toe(s) (acquired), right foot (M20.41) Active confirmed Problem Acquired hallux valgus (91903094) Hallux valgus (acquired), left foot (M20.12) Active confirmed Problem Acquired hammer toe of left foot (3684358400364562) Other hammer toe(s) (acquired), left foot (M20.42) Active confirmed Problem Acquired hallux valgus (84139733) Hallux valgus (acquired), right foot (M20.11) Active confirmed Problem Non-pressure ulcer lower limb (497535074) Non-pressure chronic ulcer of other part of left foot limited to breakdown of skin (L97.521) Active confirmed Problem Acquired hammer toe of right foot (1531119189942000) Other hammer toe(s) (acquired), right foot (M20.41) Active confirmed Problem Acquired hammer toe of left foot (5827441268984785) Other hammer toe(s) (acquired), left foot (M20.42) Active confirmed Problem Plantar nerve lesion (117589200) Lesion of plantar nerve, 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) Active confirmed Problem Polyneuropathy due to diabetes mellitus type I (755584505) Type 1 diabetes mellitus with diabetic polyneuropathy (E10.42) Active confirmed Problem 16257134340468627 Skin ulcer of toe of right foot, limited to breakdown of skin (L97.511) Active confirmed Problem 14923915975234701 Skin ulcer of toe of left foot, limited to breakdown of skin (L97.521) Active confirmed Vital Signs Blood pressure diastolic 79 mm Hg 01/04/2025 Height 5ft3in in 01/04/2025 Blood pressure systolic 124 mm Hg 01/04/2025 Weight 160 lbs 01/04/2025 BMI 28.34 kg/m2 01/04/2025 Procedures Procedure Date Ordered Date Performed Result Body Sit e 53818-YUJYGBT NAIL, 6 OR MORE 02/03/2024 N/A 19862- Debride <25 sq cm 02/03/2024 N/A 65839- I&D ABSCESS-COMPLICATED,MULTI 02/03/2024 N/A 71432-CQNS SKIN LESIONS, OVER 4 02/03/2024 N/A 15212- Debride <25 sq cm 02/14/2024 N/A 38526-LWALVPD NAIL, 6 OR MORE 06/29/2024 N/A 22169-Liehjbxm Plate 06/29/2024 N/A 87538-LLBS SKIN LESIONS, OVER 4 06/29/2024 N/A 21316-HSQNDBX NAIL, 6 OR MORE 08/31/2024 N/A 09985-JFDK SKIN LESIONS, OVER 4 08/31/2024 N/A 49487-YWAFBYD NAIL, 6 OR MORE 01/04/2025 N/A 49028-CSKB SKIN LESIONS, OVER 4 01/04/2025 N/A Encounters Encounter Location Date Provider Diagnosis [facility] [place] [address] [place] [address] 02/03/2024 Lisa Black Type 1 diabetes mellitus with diabetic polyneuropathy E10.42 ; Subungual abscess of toe, right L03.031 ; Tinea unguium B35.1 ; Subungual abscess of toe, left L03.032 and Skin ulcer of toe of left foot, limited to breakdown of skin L97.[address] [address] 02/14/2024 Lisa Black Other hammer toe(s) (acquired), right foot M20.41 ; Other hammer toe(s) (acquired), left foot M20.42 ; Type 1 diabetes mellitus with diabetic polyneuropathy E10.42 and Skin ulcer of toe of right foot, limited to breakdown of skin L97.[address] [address] 06/29/2024 Lisa Black Tinea unguium B35.1 ; Type 1 diabetes mellitus with diabetic polyneuropathy E10.42 and Ingrown nail L60.[address] [address] 08/31/2024 Lisa Black Tinea unguium B35.1 and Type 1 diabetes mellitus with diabetic polyneuropathy E10.[address] [address] 01/04/2025 Lisa Black Type 1 diabetes mellitus with diabetic polyneuropathy E10.42 ; Other hammer toe(s) (acquired), right foot M20.41 ; Tinea unguium B35.1 and Other hammer toe(s) (acquired), left foot M20.[address] [address] 02/03/2024 Lisa Black [address] [address] 05/31/2024 Lisa Black [address] [address] 11/02/2024 Lisa Black Assessments Encounter Date Diagnosis (ICD Code) Assessment [...] B35.1) 08/31/2024 Tinea unguium (ICD-10 - B35.1) 01/04/2025 Type 1 diabetes mellitus with diabetic polyneuropathy (ICD-10 - E10.42) 01/04/2025 Other hammer toe(s) (acquired), right foot (ICD-10 - M20.41) Patient Educated with: DIABETIC FOOT CARE INSTRUCTIONS. pdf (DIABETIC FOOT CARE INSTRUCTIONS. pdf) 01/04/2025 Tinea unguium (ICD-10 - B35.1) 08/31/2024 Type [...] L03.032) 06/29/2024 Ingrown nail (ICD-10 - L60.0) 01/04/2025 Other hammer toe(s) (acquired), left foot (ICD-10 - M20.42) 02/03/2024 Skin ulcer of toe of left foot, limited to breakdown of skin (ICD-10 - L97.521) Plan Of Treatment Pending Test Test Name Order Date *Wound Culture 02/03/2024 41007-FHJHIPL NAIL, 6 OR MORE 07/26/2023 79754-RGUDLPF NAIL, 6 OR MORE 11/04/2023 17323-EMGLMUU NAIL, 6 OR MORE 02/03/2024 40334-BAWKJAC NAIL, 6 OR MORE 10/26/2022 66141-JJJTLUT NAIL, 6 OR MORE 01/28/2023 10805-YVSHHVR NAIL, 6 OR MORE 05/10/2023 40035-OWIYZIO NAIL, 6 OR MORE 06/29/2024 08074-QTTJMQG NAIL, 6 OR MORE 08/31/2024 41469-QFPSXMB NAIL, 6 OR MORE 01/04/2025 61527-WVLJEER NAIL, 6 OR MORE 12/09/2011 21604-OQPZAKN NAIL, 6 OR MORE 03/16/2012 84920-ONZSHRC NAIL, 6 OR MORE 09/28/2012 65679-GPYGDHG NAIL, 6 OR MORE 05/31/2013 23875-ZOXCRHV NAIL, 6 OR MORE 10/11/2013 11514-AQATJAU NAIL, 6 OR MORE 03/21/2014 29320-DLPKDAQ NAIL, 6 OR MORE 12/12/2014 23114-XXWCUML NAIL, 6 OR MORE 02/27/2015 36999-FXLSXVL NAIL, 6 OR MORE 06/12/2015 21643-WRJYZSX NAIL, 6 OR MORE 04/22/2016 18810-NBTKSIR NAIL, 6 OR MORE 07/23/2016 81952-BPXVAKN NAIL, 6 OR MORE 10/22/2016 14183-CMDJPZT NAIL, 6 OR MORE 12/24/2016 58222-WQZFICK NAIL, 6 OR MORE 01/22/2016 31119-ERTZKAC NAIL, 6 OR MORE 02/25/2017 84122-NCJJDSF NAIL, 6 OR MORE 04/29/2017 24722-YGZNBZR NAIL, 6 OR MORE 07/01/2017 58684-RULYQWR NAIL, 6 OR MORE 09/02/2017 38100-LANQLUN NAIL, 6 OR MORE 11/18/2017 42850-TOHBHZX NAIL, 6 OR MORE 01/20/2018 53425-PUAJNQM NAIL, 6 OR MORE 04/06/2018 09021-BNUSADI NAIL, 6 OR MORE 05/26/2018 33117-UQXWARY NAIL, 6 OR MORE 08/04/2018 90245-SYCQHER NAIL, 6 OR MORE 12/08/2018 83806-TYJMGSY NAIL, 6 OR MORE 02/09/2019 01259-OWTMGOC NAIL, 6 OR MORE 04/13/2019 79768-PXHVLXX NAIL, 6 OR MORE 06/15/2019 68593-WOGLWKL NAIL, 6 OR MORE 09/07/2019 74488-JFDAOCK NAIL, 6 OR MORE 11/16/2019 71787-ICUDEWE NAIL, 6 OR MORE 01/25/2020 69895-QACBTYY NAIL, 6 OR MORE 04/11/2020 12198-ZOYPYBL NAIL, 6 OR MORE 01/20/2021 70992-XMNJZMH NAIL, 6 OR MORE 04/10/2021 70991-UNNONCF NAIL, 6 OR MORE 07/24/2021 18591-ENEDKKR NAIL, 6 OR MORE 10/06/2021 45092-GGAENQB NAIL, 6 OR MORE 12/15/2021 21377-WTMOHQT NAIL, 6 OR MORE 02/16/2022 85566-QPOUFOI NAIL, 6 OR MORE 07/16/2022 91077-QGLCQCS NAIL, 6 OR MORE 09/12/2014 09828-QOKERXT NAIL, 6 OR MORE 05/04/2022 50905-NSBGICQ NAIL, 6 OR MORE 06/27/2014 10959-KWFJNYQ NAIL, 6 OR MORE 12/28/2012 59477-NNEIJAB NAIL, 6 OR MORE 10/16/2015 92716-Awlmwkgu Plate 07/16/2022 22012-Qvfqqcum Plate 10/26/2022 82773-Wdvjikrw Plate 12/28/2012 13229-Wzqykomj Plate 10/16/2015 76062-Vvkosyix Plate 06/27/2014 20627-Cdddmqho Plate 09/12/2014 21691-Wtagzumu Plate 05/04/2022 43870-Wijjsgwq Plate 02/16/2022 64818-Wskheeab Plate 12/15/2021 72544-Fexdncae Plate 07/24/2021 01278-Bvokzewl Plate 01/20/2021 32369-Zpqbvjlq Plate 01/25/2020 47278-Pblyuvzz Plate 11/16/2019 61764-Xiuiwzpr Plate 04/13/2019 63131-Lzilzzqz Plate 01/20/2018 89339-Emsatfrw Plate 05/26/2018 69012-Vckgovia Plate 09/02/2017 78401-Aktzfpjn Plate 2017 33272-Xmroihlu Plate 04/29/2017 01693-Szimdnof Plate 07/01/2017 86779-Paarytou Plate 01/22/2016 87070-Lbghuali Plate 12/24/2016 01089-Kxrjtxiu Plate 10/22/2016 18708-Mhasvnyi Plate 07/23/2016 30732-Lcmrbnsz Plate 04/22/2016 01763-Cigccmuu Plate 06/12/2015 29892-Onpvztnh Plate 02/27/2015 17860-Xwtqxcrk Plate 12/12/2014 28909-Araxjotb Plate 03/21/2014 22588-Qotzcukz Plate 10/11/2013 97396-Pddzxawn Plate 05/31/2013 83397-Neohplhj Plate 09/28/2012 37883-Pursctsn Plate 03/16/2012 66128-Grcxzrzt Plate 12/09/2011 69548-Eliabwty Plate 06/29/2024 37382-Flkmpxwi Plate 05/10/2023 38805-Nakawoze Plate 07/26/2023 65215-Wxxwwgsy Plate Each Additional 71214-Cdbinftr Plate Each Additional 12/2012 16957-Dmyzbaog Plate Each Additional 66948-Uhcpaqmo Plate Each Additional 03723-Kkradajo Plate Each Additional 30835-Ibfmflho Plate Each Additional 11/2014 85151-Mntgvscs Plate Each Additional 85430-Dbzexxvy Plate Each Additional 70691-Vbewwaxd Plate Each Additional 21540-Haksnsmz Plate Each Additional 50223-Nojcsqii Plate Each Additional 11/2016 82580-Auufshzq Plate Each Additional 62467-Krzwpvay Plate Each Additional 03/2017 56638-Dnloemid Plate Each Additional 55606-Mfkoxzrv Plate Each Additional 05734-Mwgqdbal Plate Each Additional 26743-Xajycmsw Plate Each Additional 70773-Wbgspofx Plate Each Additional 84101-Kuwdzvty Plate Each Additional 21068-Kayxvzbd Plate Each Additional 72140-Vjxfppot Plate Each Additional 04/2022 69244-Mbtkotca Plate Each Additional 52988-Igbczvtj Plate Each Additional 09/2013 13361-Kbnigqmy Plate Each Additional 62318- Debride <25 sq cm 02/14/2024 69461- Debride <25 sq cm 02/03/2024 85179 I&D ABSCESS- SIMPLE,SINGLE 021 59046 I&D ABSCESS- SIMPLE,SINGLE 021 55423- I&D ABSCESS-COMPLICATED,MULTI 05/2024 23474-OAUP SKIN LESIONS, OVER 4 02/03/20 24 53111-PNZF SKIN LESIONS, OVER 4 11/04/19 24 58345-SCEW SKIN LESIONS, OVER 4 07/26/20 23 09560-ZYBK SKIN LESIONS, OVER 4 05/10/20 23 06368-BQAF SKIN LESIONS, OVER 4 01/29/20 14816-MBHF SKIN LESIONS, OVER 4 06/29/20 24 56885-ULRN SKIN LESIONS, OVER 4 08/31/20 24 72917-TEXV SKIN LESIONS, OVER 4 01/05/20 25 05840-LPJL SKIN LESIONS, OVER 4 05/26/20 18 41208-BSUC SKIN LESIONS, OVER 4 11/18/19 18 14842-CGFY SKIN LESIONS, OVER 4 09/02/20 17 63242-AFXE SKIN LESIONS, 2 TO 4 01/21/20 18 56962-MODK SKIN LESIONS, 2 TO 4 04/06/20 18 67849-SPIW SKIN LESIONS, 2 TO 4 01/22/20 16 52907-KKHG SKIN LESIONS, 2 TO 4 04/29/20 17 30934-FMQK SKIN LESIONS, 2 TO 4 07/01/20 17 70798-BGKQ SKIN LESIONS, 2 TO 4 10/22/19 17 94376-LDSF SKIN LESIONS, 2 TO 4 12/25/19 17 88914-PHHX SKIN LESIONS, 2 TO 4 02/26/20 17 50588-JTMX SKIN LESIONS, 2 TO 4 07/23/20 16 91957-KULB SKIN LESIONS, 2 TO 4 04/22/20 16 15642-ABSK SKIN LESIONS, 2 TO 4 06/12/20 15 76543-VEWC SKIN LESIONS, 2 TO 4 02/28/20 15 72336-RSYP SKIN LESIONS, 2 TO 4 12/13/19 15 69947-YZAT SKIN LESIONS, 2 TO 4 04/10/20 21 83613-GNIJ SKIN LESIONS, 2 TO 4 07/24/20 21 69204-ORXE SKIN LESIONS, 2 TO 4 01/25/20 20 74800-JPUV SKIN LESIONS, 2 TO 4 01/21/20 21 98657-OGEI SKIN LESIONS, 2 TO 4 04/11/20 20 12740-NCQW SKIN LESIONS, 2 TO 4 11/16/19 20 64222-NCDK SKIN LESIONS, 2 TO 4 06/15/20 19 95829-TERC SKIN LESIONS, 2 TO 4 09/07/20 19 53229-KVCF SKIN LESIONS, 2 TO 4 04/13/20 19 61605-CQGI SKIN LESIONS, 2 TO 4 02/10/20 19 28232-IYHP SKIN LESIONS, 2 TO 4 12/09/19 19 04063-ZBNW SKIN LESIONS, 2 TO 4 08/04/20 18 72065-YYLX SKIN LESIONS, 2 TO 4 10/06/19 22 29217-JDRV SKIN LESIONS, 2 TO 4 12/16/19 14571-NOBC SKIN LESIONS, 2 TO 4 05/04/20 88868-VCRJ SKIN LESIONS, 2 TO 4 02/17/20 11533-QGCS SKIN LESIONS, 2 TO 4 10/16/19 16 63145-DRNP SKIN LESIONS, 2 TO 4 10/26/19 23 82150-SCWJ SKIN LESIONS, 2 TO 4 06/27/20 14 08772-LCIZ SKIN LESIONS, 2 TO 4 07/16/20 53020-TIAA SKIN LESIONS, 2 TO 4 09/12/20 14 Next Appt Details Provider Name:Lisa Crouch , 04/12/2025 09:30:00 AM, [address] [place] [address], [phone], Provider Name:Lisa Crouch , 06/14/2025 10:00:00 AM, [address] [place] [address], [phone], Insurance Providers Payer Name Payer Address Payer Phone Subscriber Number Group Number Insured Name Patient Relationship to Insured Coverage Start Date Coverage End Date Medicare National [employer]t S[employer] [address] [place] [address] [id number] Shelia Bajwa Self - patient is the insured 6 [employer] [address] [address] [place] [address] [phone] [id number] Shelia Bajwa Self - patient is the insured 4 Medical (General) History Medical History History ICD Code measles hypertension diabetic type 1 Diabetic - IDDM Stroke Clogged Ear Surgical History Surgery Date(Month/Year) stent insertion 1995 right knee surgery 2012 Hospitalization History Reason Date(Month/Year) [facility]- Stroke 2020
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
--- OUTSIDE RECORDS SUMMARY | 2025-01-22 13:01 | XMS_ITS | Patient Health Record ---
Author Organization [facility] Address [address] [address] Support Name Relationship Address Phone BELLE GREENYCE Guarantor Unknown [phone] Reason For Referral No Information Medications Medication SIG (Take, Route, Frequency, Duration) Notes Start Date End Date Status Leesa 1 ORAL daily for -3 Fazal-MJ 2013 Active Lipitor 1 ORAL daily for -3 Fazal-MJ 2013 Active metFORMIN HCl 1 ORAL twice daily for -3 Fazal-MJ 2013 Active Bystolic 1 ORAL DAILY for -3 [facility]-MJ 2013 Active Januvia 1 ORAL daily for -3 [facility]- 2013 Active Lantus for [employer] 100 UNIT/ML Subcutaneous AT BEDTIME for -3 Fazal-MJ 2013 Active Problems Problem Type SNOMED Code ICD Code Onset Dates Problem Status W/U Status Risk Notes Problem Hypothyroidism (17934895) Unspecified hypothyroidism (244.9) Active confirmed Major Problem Type II diabetes mellitus uncontrolled (404913505) Diabetes mellitus without mention of complication, type II or unspecified type, uncontrolled (250.02) Active confirmed Diag Problem Benign essential hypertension (8724188) Essential hypertension, benign (401.1) Active confirmed Major Problem Spinal stenosis, excluding cervical region (disorder) (844243282) Spinal stenosis, unspecified region other than cervical (724.00) Active confirmed Major Problem Osteoarthritis (231859508) Osteoarthrosis, unspecified whether generalized or localized, unspecified site (715.90) Active confirmed Major Problem Gynecological examination normal (528437889361567) Routine gynecological examination (V72.31) Active confirmed Major Problem Screening for malignant neoplasm of colon (612105074) Special screening for malignant neoplasms, colon (V76.51) Active confirmed Major Plan Of Treatment No Information Insurance Providers Payer Name Payer Address Payer Phone Subscriber Number Group Number Insured Name Patient Relationship to Insured Coverage Start Date Coverage End Date [facility] [address] [facility] [place] [address] [id number] PUJA GREEN Self - patient is the insured
--- OUTSIDE RECORDS SUMMARY | 2025-01-22 13:01 | XMS_ITS | Continuity of Care Document ---
Author Organization [facility] [address] [place] [address] Phone [phone] Care Team Providers Care Natural Resources Engineer Name Role Phone Brenden Lucas M.D. Care Team Information Rece iver [phone] Problems Active Problems Provider Date Type 2 [...] SIG Qnty Indications Order ing Provider Date Vaxwhqxc36lt/0.5ML Solution Auto-Inject inject weekly 6ml Ty Cooper M.D. 10/11/2024 Ifsbsnp14wk Tablets 1 tablet by mouth every day 90tabs Ty Cooper M.D. 12/22/2023 Freestyle Danni 3/[place]/Glucose Monitoring Eduqnc0Xdtdsp Device use with sensors to check blood sugar dx:e11.9 1units Ty Cooper M.D. 12/22/2023 Freestyle Danni 3/Sensor/Glucose Monitoring Ownisj9Wdefix Misc Use as Directed To Test Blood Sugar Change Every 14 Days 6units Ty Cooper M.D. 12/22/2023 Aokuvoa9iz Tablets 1 tabs by mouth ever y day 90tabs Ty Cooper M.D. 10/21/2022 Atorvastatin Lkdrvdw85ii Tablets 1 by mouth every day Ty Cooper M.D. 10/21/[address] 1 daily Ty Cooper M.D. 04/09/2022 Vitamin D (Cholecalciferol)25 mcg (1000 Ut) Capsules 1 daily Ty Cooper M.D. 04/09/[address] tab by mouth every day at bedtime Ty Cooper M.D. 04/09/2022 Oxybutynin Chloride ER10mg Tablets ER 24HR 1 tab by mouth every day Ty Cooper M.D. 04/09/2022 Aspirin 81 Low Gzsu18gq Chewtabs 1 daily Ty Cooper M.D. 04/09/2022 Azor5-40mg Tablets 1 tab by mouth every day Ty Cooper M.D. 04/09/2022 Humalog Kioemkk038Qgmf/ML Solution Pen-Inject Inject 14 Units Subcutaneously AT Supper (Discard Pen 28 Days After Opening And Start A New Pen) Dx: E11.9 15units E11Catrachito9 Ty Cooper M.D. 04/09/2022 Puclfb275Pabt/ML Solution 60 units every day 30ml E11.9 Ty Cooper M.D. 04/09/2022 Metformin KVE5820wr Tablets Take 1 Tablet By Mouth Two Times A Day 180tabs Ty Cooper M.D. History Medications Mounjaro7.5mg/0.5ML Solution Pen-Inject inject weekly 6ml Ty frank M.D. 06/29/2024 - 10/11/2024 Kqkveyyvs7dr/0.5ML Solution Pen-Inject inject 1 pen subcutaneously once a week Dx: E11.9 6ml E11Flor Cooper M.D. 04/04/2024 - 06/29/2024 Lcxjsktw4qy/0.5ML Solution Pen-Inject 1 injection every week as [...]
[2025-01-22 13:03] LABS: MANUAL DIFF FLAG NO
[2025-01-22 13:25] LABS: Basophils Absolute Auto 0.1 X10*3/uL (0.0-0.2); Basophils Percent Auto 0.6 % (0-2); Eosinophils Absolute Auto 0.2 X10*3/uL (0.0-0.4); Eosinophils Percent Auto 1.7 % (0-4); Hematocrit 41.1 % (37.0-47.0); Hemoglobin 13.4 g/dl (12.0-16.0); Imm Gran Abs Auto 0.03 X10*3/uL (0.00-0.03); Imm Gran Pct Auto 0.3 % (0.0-0.4); Lymphocytes Absolute Auto 1.9 X10*3/uL (1.2-4.9); Mean Corpuscular HGB Conc 32.6 g/dl (31.0-35.0); Mean Corpuscular Hemoglobin 28.3 pg (27.0-33.0); Mean Corpuscular Volume 86.7 fL (80.0-98.0); Mean Platelet Volume 10.3 fL (9.4-12.3); Monocytes Absolute Auto 0.7 X10*3/uL (0.1-1.2); Monocytes Percent Auto 7.6 % (2-11); Neutrophils Absolute Auto 6.5 x10*3/uL (2.0-8.3); Neutrophils Percent Auto 69.8 % (45-73); Platelet Count 438 X10*3/uL (160-400); Red Blood Count 4.74 X10*6/uL (4.20-5.50); Red Cell Distribution Width 13.3 % (11.0-16.0); White Blood Count 9.3 X10*3/uL (4.8-10.8)
[2025-01-22 13:48] LABS: Alanine Aminotransferase 31 U/L (0-31); Albumin Level 4.4 g/dL (3.5-5.0); Alkaline Phosphatase 64 U/L (39-117); Anion Gap 16 (12-20); Aspartate Amino Transferase 25 U/L (5-31); Bilirubin Total 0.9 mg/dL (0.0-1.0); Blood Urea Nitrogen 21 mg/dL (9-16); Calcium 9.9 mg/dL (8.4-10.2); Carbon Dioxide 27 mmol/L (22-29); Chloride 102 mmol/L (96-108); Cholesterol 122 mg/dL (<200); Estimated Glomerular Filt Rate > 60; Free T4 (Free Thyroxine) 1.15 ng/dL (0.71-1.85); Glucose Random 165 mg/dL (60-115); HDL Cholesterol 38 mg/dL (>40); LDL Cholesterol Calculated 41 mg/dL (<100); Potassium 4.4 mmol/L (3.3-5.1); Sodium 141 mmol/L (135-145); Total Protein 7.5 g/dL (6.5-8.0); Triglycerides 216 mg/dL (<150); Vitamin D 25-OH Total 40.4 ng/mL (>30)
[2025-01-22 13:59] LABS: Folate 14.1 ng/mL (> or = 4.0); Vitamin B12 402 pg/mL (200-900)
== END 2025-01-22 10:53 | disposition home or self-care (01) ==
LOC: HO.HMGCLDS 10:52
DX: Z00.00 Encounter for general adult medical examination without abnormal findings (principal); E78.00 Pure hypercholesterolemia, unspecified
CPT/HCPCS: 36415; 80053; 80061; 82306; 82607; 82746; 84439; 84443; 85025

== ENCOUNTER 2025-04-03 14:14 | Outpatient (AMB) | payer OTHER, SELFPAY ==
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
[2025-04-03 14:28] VITALS: BP 136/74; PULSE 99; RESP 18; TEMP 36.3; O2SAT 96; BMI 29.7
--- NOTE | 2025-04-03 14:28 | A.OFFPC_ITS ---
Vital Signs 04/03/25 14:28 Height 5 ft 2 in Weight 162 lb 4 oz BMI 29.7 BP 136/74 Blood Pressure Location Rt brachial Position Sitting Respiration 18 Pulse 99 Pulse Source Pulse Oximeter Temp 97.3 F Temp Source Temporal Artery Scan Pulse Oximetry (%) 96 Oxygen Delivery Method Room Air Intake Visit Reasons: Annual Exam Allergies No Known Allergies Allergy (Verified 04/03/25 14:53) Medication List - Last Reconciled 04/03/25 by Sheron Pruitt PA-C amlodipine 5 mg PO DAILY aspirin 81 mg PO DAILY atorvastatin 40 mg PO DAILY blood-glucose sensor (NeuMoDx MolecularStyle Danni 3 Sensor device) Test blood sugar 5 times a day cholecalciferol (vitamin D3) 25 mcg PO DAILY dupilumab (Dupixent) 300 mg subcut Q2W insulin glargine (Lantus Solostar U-100 Insulin) 60 units subcut DAILY insulin lispro (Humalog KwikPen (U-100) Insulin) 14 units subcut DAILY levetiracetam 1,000 mg PO BID losartan 25 mg PO DAILY metformin 1,000 mg PO BID methenamine-sodium salicylate 162-162.5 mg (AZO Urinary Tract Defense) 1 tab PO BEDTIME multivitamin 1 tab PO DAILY pen needle, diabetic (Droplet Pen Needle) twice a day tirzepatide (Mounjaro) 10 mg subcut QWEEK Tobacco use date assessed: 04/03/25 Fall risk assessment: No Falls in past year Last assessed Fall Risk: 04/03/25 Dental Screening Dental Screen Date: 04/03/25 Did you have a dental visit in the last 12 months?: Yes Did you have a dental problem in the last 6 months where you did not have access to dental care?: No Was dental information given to patient?: Patient has dentist HPI Annual Exam HPI Details 74-year-old female with past medical his tory of diabetes mellitus, hypercholesterolemia, seizure disorder, hypertension, history of CVA last seen 12/2024 coming in for annual exam. Presenting for a routine wellness visit and management of chronic conditions. Diabetes Mellitus is Managed with insulin, metformin, and Mounjaro, with recent A1c increase to 7.4 and currently following with [facility] endocrinology. Constipation occurs biweekly, linked to low fluid intake. She has no other concerns today Mammogram: declining mammogram at this time Eye exam: Dr. Mcelroy [facility] Colonoscopy: last colonoscopy about 10 years ago - scheduled for 04/2025 [facility] Surgical History History of knee surgery Social History Housing: House Alcohol intake: never Patient Tobacco Use Status: Never used Tobacco e-Cigarette/Vaping Use: Never Used Second Hand Smoke Exposure: No service: No Current occupational status: retired and disabled Cognitive needs: Yes (Wheelchair, Walker) Hearing needs: Yes (hearing aide) Vision needs: Yes (Glasses) Questionnaire PHQ-9 Over the last 2 weeks, how often have you been bothered by any of the following problems? 1. Little interest or pleasure in doing things: not at all 2. Feeling down, depressed, or hopeless: not at all 3. Trouble falling or staying asleep, or sleeping too much: not at all 4. Feeling tired or having little energy: several days 5. Poor appetite or overeating: not at all 6. Feeling bad about yourself - or that you are a failure or have let yourself or your family down: not at all 7. Trouble concentrating on things, such as reading the newspaper or watching television: not at all 8. Moving or speaking so slowly that other people could have noticed. Or the opposite - being so fidgety or restless that you have been moving around a lot more than usual: not at all 9. Thoughts that you would be better off or of hurting yourself in some way: not at all Total score: 1 Depression Screening Interpretation: Negative Depression Screening Done: Yes Source: Developed by Drs. Niko Heard, Yolanda Barakat, Yonathan Beauchamp and colleagues, with an educational balaji from [employer]. Thrive Questionnaire Date Thrive assessed: 12/27/24 I am a: Patient What is your living situation today?: I have a steady place to live Within the past 12 months, did the food you bought not last and you didn't have the money to get more?: Never true Within the past 12 months, did you worry whether your food would run out before you got money to buy more?: Never true Do you have trouble paying for medicines?: No Do you have trouble getting transportation to medical appointments?: No Do you have trouble paying your heating and electricity bill?: No Do you have trouble taking care of your child, family member or friend?: No Do you have trouble with day-to-day activities such as bathing, preparing meals, shopping, managing finances, etc.?: No Are you currently unemployed and looking for a job?: No Are you interested in more education?: No Please select the resources that you would like help with: None Currently or been in a relationship where the following occur: No concerns reported THRIVE Score: 0 AUDIT C Alcohol Use Questionnaire (AUDIT-C) 1. How often do you have a drink containing alcohol?: Never 3. How often do you have six or more drinks on one occasion?: Never Total Score: 0 ALBERT-7 AMB Questionnaire ALBERT-7 Date ALBERT - 7 assessed: 12/27/24 Feeling nervous, anxious, or on edge: 0 = Not at all Not being able to stop or control worryin = Not at all Worrying too much about different things: 0 = Not at all Trouble relaxin = Not at all Being so restless that it is hard to sit still: 0 = Not at all Becoming easily annoyed or irritable: 1 = Several days Feeling afraid as if something awful might happen: 0 = Not at all Total ALBERT-7 score (0-4 normal; 5-9 mild; 10-14 moderate; 15-21 severe): 1 Source: Developed by Drs. Niko Heard, Yolanda Barakat, Yonathan Beauchamp and colleagues, with an educational balaji from [employer]. Review of Systems Const Denies body aches, Denies fatigue, Denies fever(s), Denies frequent falls, Denies headache(s) and Denies weakness Eyes Reports no additional complaints and Denies change in vision ENT Details: wears hearing aids Denies dysphagia, Denies dizziness, Denies facial pain, Denies headache(s) and Denies odynophagia Card Denies chest pain, Denies syncope, Denies irregular heart rhythm, Denies leg edema, Denies lightheadedness and Denies dyspnea Resp Denies cough and Denies dyspnea GI Denies abdominal pain, Reports constipation, Denies dysphagia, Denies dyspepsia, Denies diarrhea, Denies nausea, Denies odynophagia and Denies vomiting Denies urinary frequency, Denies dysuria, Denies urinary hesitancy and Denies urinary urgency Musc Denies back pain and Denies myalgias Skin/Breast Reports system reviewed and no additional complaints, except as documented Neuro Denies dizziness, Denies syncope, Denies frequent falls, Denies headache(s) and Denies weakness Psych Reports no additional complaints Endo Denies fatigue Physical exam (Primary Care) Vital Signs: Last Vital Signs Temp 97.3 F 04/03/25 14:28 Pulse 99 04/03/25 14:28 Resp 18 04/03/25 14:28 BP 136/74 04/03/25 14:28 Pulse Ox 96 04/03/25 14:28 Oxygen Delivery Method Room Air 04/03/25 14:28 BMI result Body Mass Index 29.7 Tobacco/Smoking Status: Tobacco use Status Tobacco use date assessed 04/03/25 04/03/25 14:43 Patient Tobacco Use Status Never used Tobacco 04/03/25 14:28 e-Cigarette/Vaping Use Never Used 04/03/25 14:28 PHQ-9: PHQ-9 Score PHQ-9: Total score 1 04/03/25 14:52 Depression Screening Interpretation: Negative Thrive Assessment: Date of Thrive Assessment Date Thrive assessed 12/27/24 04/03/25 14:28 Currently or been in a relationship where the following occur: No concerns reported Advance Care Planning discussion: On file, no changes Date of discussion: 04/03/25 Who was present: patient, spouse Time spent: 1-15 minutes, on File Const General: cooperative, healthy appearing, comfortable and no acute distress Orientation/consciousness: patient oriented x3 [facility] Head: Yes normocephalic Ears: hearing grossly normal bilaterally, external ears normal, TM's normal bilaterally and Abnormal EAC present cerumen impaction bilateral General nose exam: Normal external nose present Face and sinus: Yes normal facial exam and Yes sinuses nontender Mouth: Normal oral and palatal mucosa present and tongue normal Throat: Yes posterior oropharynx normal Eyes General: appearance normal, both eyes and all related structures Conjunctivae: conjunctivae normal Pupils: Equal, round and reactive pupils present EOM: EOMs intact bilaterally and No Nystagmus present Neck Neck: Yes normal visual inspection, Yes full ROM and Yes no lymphadenopathy Chest Chest palpation & inspection: normal inspection of the chest Resp Effort & Inspection: normal respiratory effort Auscultation: clear to auscultation bilaterally, no crackles, no rales, no rhonchi, no wheezes and breath sounds present Cardio Rate: regular rate Rhythm: regular rhythm Peripheral pulses: radial pulses present and dorsalis pedis present GI Inspection: Yes normal to inspection and No Abdominal wall edema Palpation (GI): Soft to palpation, not firm and nontender Auscultation: normal bowel sounds Rectal Exam - Female: deferred General: Yes no CVA tenderness Back/Spine/Pelvis Back: no CVA tenderness Skin General skin exam: no rashes or lesions noted Neuro General: patient oriented x3 Cranial nerves: Yes Equal, round and reactive pupils present, Yes Midline tongue present, Yes Ability to bilaterally elevate shoulders present and No Nystagmus present Gait exam (Neuro): Normal gait present Extrem Other: Declining foot exam General: Yes normal to inspection, Yes full ROM, No no pedal edema and No edema Psych Speech and movement: Normal speech and movement present Affect: normal affect Insight: Good insight present (Psych) Judgement: Good judgement present (Psych) Results AMB Hemoglobin A1c AMB Hemoglobin A1c 7.4 % Last Edit by Sulema Laboy CMA on 04/03/25 14:44 Results Reviewed Results Reviewed: Laboratory Last Values Hgb A1c (Clinic) 7.4 % (4.0-6.0) H 04/03/25 14:43 Coding Level of Care Code Est Pt Prev Care >65y(49075) Diagnoses Annual physical exam Z00.00 Hypertension I10 Hypercholesterolemia E78.00 Diabetes mellitus E11.9 CVA (cerebral vascular accident) I63.9 Seizure disorder G40.909 Cerumen impaction H61.20 Additional Codes Vital Signs *Quality* - Advance Care Planning discussion: On file, no changes ([id number]) Vital Signs *Quality* - Time spent: 1-15 minutes, on File ([id number]) Assessment & Plan Assessment & Plan (1) Annual physical exam: Code(s): Z00.00 - Encounter for general adult medical examination without abnormal findings Category: Medical Plan: Patient is up-to-date on all recommended routine screenings and vaccinations for her age. She is due for colonoscopy and has an appointment scheduled for June for consultation. Blood work is up-to-date and has been reviewed with the patient today. She will follow up in 3 months to follow up on diabetes or sooner as needed. (2) Hypertension: Code(s): I10 - Essential (primary) hypertension Category: Medical Plan: Continue on current blood pressure medication. Avoid salt intake and encourage healthy diet and regular exercise. (3) Hypercholesterolemia: Code(s): E78.00 - Pure hypercholesterolemia, unspecified Category: Medical Plan: Avoid foods that are high in cholesterol such as red meat, fried foods, eggs and baked goods. Triglyceride goal of less than 150 and LDL goal of less than 70. Last LDL at goal continue on atorvastatin 40 (4) Diabetes mellitus: Comment: [facility] / [facility] endocrinology Code(s): E11.9 - Type 2 diabetes mellitus without complications Category: Medical Plan: Decrease the amount of carbohydrates such as pasta, bread, rice, and potatoes and limit the amount of sweets. Although fruits are generally healthy they should be eaten in moderation as they are still high in sugar. Hemoglobin A1c goal of less than 7%. Her A1c in the office today 7.4% which is above her goal and she will be seeing endocrinology in the next 2 weeks. (5) CVA (cerebral vascular accident): Comment: 2020 minor stroke Code(s): I63.9 - Cerebral infarction, unspecified Category: Medical Plan: Patient had a minor stroke in 2020 as a result is on lifelong aspirin 81 mg. Continue on atorvastatin 40 mg for good control of cholesterol and advised good control of blood pressure and blood sugars. (6) Seizure disorder: Comment: [facility] Neurology Code(s): G40.909 - Epilepsy, unspecified, not intractable, without status epilepticus Category: Medical Plan: Patient is currently following with [facility] Neurology and on Keppra 2000 mg daily. (7) Cerumen impaction: Code(s): H61.20 - Impacted cerumen, unspecified ear Category: Medical Plan: Patient having bilateral cerumen impaction recommended use of Debrox drops for 4 days and have ear flush to follow up. Plan Diabetes management will continue under endocrinology, with potential adjustments to Mounjaro. Blood glucose and A1c will be monitored, aiming for an A1c below 7. Hyperlipidemia is controlled with atorvastatin, and cholesterol will be re-evaluated in three months. Hypertension remains stable with current medications. Preventative care includes scheduling a mammogram and colonoscopy, and maintaining regular eye exams. The patient is advised to increase water intake to address constipation and continue using unsweetened tea. Cerumen impaction will be managed with softening drops and follow-up ear cleaning. The patient will continue dermatology care for eczema and maintain regular podiatry visits for leg swelling. Follow-up appointments are scheduled every three months to monitor chronic conditions and adjust treatment plans as needed. This note was constructed using voice recognition software. While every effort has been made to ensure accuracy and cnc cutting operator, still areas may have been included sometimes these areas may affect the content or meeting of the given symptoms. Total time spent caring for the patient today was 30 minutes. This includes time spent before the visit reviewing the chart, time spent during the visit, and time spent after the visit and documentation. Patient was informed and verbally consented to the use of an ambient scribe for clinic note documentation during this visit. Orders: Orders AMB Hemoglobin A1c Today Z13.9 - Encounter for screening, unspecified Hemoglobin A1c 3 Months E11.65 - Type 2 diabetes mellitus with hyperglycemia, E11.9 - Type 2 diabetes mellitus without complications Lipid Panel 3 Months E11.9 - Type 2 diabetes mellitus without complications, E78.00 - Pure hypercholesterolemia, unspecified Comprehensive Met. Panel 3 Months E11.9 - Type 2 diabetes mellitus without complications, Z00.00 - Encounter for general adult medical examination without abnormal findings Medications: New atorvastatin (Lipitor) 40 mg PO BEDTIME 90 tabs 0RF amlodipine 5 mg PO DAILY 90 tabs 1RF E11.9 - Type 2 diabetes mellitus without complications carbamide peroxide 6.5% (Debrox) 5 drps otic (ears) DAILY 15 mL 0RF 4 days
--- OUTSIDE RECORDS SUMMARY | 2025-04-03 15:05 | XMS_ITS | Clinical Summary ---
Author Organization [facility] [address] [facility] Address [address] [place] [address] Phone Care Team Providers Care Field Collector Name Role Phone hSahram Jeffery MD Primary Care Provider [phone] Allergies No known active allergies Medications amLODIPine (NORVASC) 5 mg tablet 5 Active atorvastatin (LIPITOR) 80 mg tablet Take 1 tablet (80 mg total) by mouth 1 (one) time each day. 4 Active FreeStyle Danni 3 [place] misc use as directed to test blood [...] (twelve) hours. for 7 days 4 Active Social History Tobacco Use Types Packs/Day Years [...] Health Screening 08/29/2022 Breast Cancer Screening 01/09/2024 01/09/20 22, 05/05/2019, 05/02/2018 COVID-19 Vaccine ( - 2023-2 5 season) 2024 Influenza Vaccine (#1) 2025 RSV Immunization Adult Patients (1 - [...] Procedure Name Priority Date/Time Associated Diagnosis Comments [facility] SCREENING DIGITAL Routine 01/08/2022 1:30 PM EDT Encounter for screening mammogram for malignant neoplasm of breast from Last 3 Months or Most Recently Relevant to Health Maintenance Results * [facility] SCREENING DIGITAL (01/08/2022 1:30 PM EDT) Anatomical Region Laterality Modality Mammography 01/08/2022 11:0 9 AM EDT Narrative 01/08/2022 1:30 PM EDT [facility] Diagnostic Imaging Department [address] [place] [address] Patient: SHELIA GREEN Claus /Age/Sex: 1950 - 71 - F Unit#: [id number] Location/Status: [facility] CLI Mnemonic/Ordering Site: [facility] Ordering Physician: SHAHRAM JEFFERY MD Latasha Screening Digital - 01/08/22 - 1134 EXAM: [facility] Screening Digital EXAM DATE AND TIME: 01/08/2022 11:34 AM HISTORY: Screening. COMPARISON: 05/05/19, 05/02/18, 04/21/17, 03/09/16 TECHNIQUE: CC and MLO views of both breasts were obtained using full field digital mammography. Bilateral digital breast tomosynthesis was performed in the MLO projection. Computer aided detection with the CannaBuild 7.2-H was employed. TISSUE DENSITY: a. The breasts are almost entirely fatty. FINDINGS: No suspicious masses, grouped microcalcifications, or areas of architectural distortion are seen. Several coarse, benign calcifications are scattered bilaterally, unchanged. Vascular calcification is present. The skin is unremarkable. IMPRESSION: Stable mammographic appearance of the breasts. No evidence of malignancy is seen. A negative mammogram in the presence of a clinically suspicious palpable abnormality does not preclude the possibility of malignancy or alter the indicat ions for biopsy. BI-RADS: Category 2: Benign RECOMMENDATION(S): 1: Routine screening mammogram BILATERAL in 1 year. [address]04, 15406 3342F, 7025F Dictating Physician: CODI LOCO MD Electronically Signed by: CODI LOCO MD Dic Date/Time: 01/08/22 1330 Sign date/Time: 01/08/22 1330 Procedure Note Codi Loco MD - 09/16/2022 [facility] Diagnostic Imaging Department [address] [place] [address] Patient: SHELIA GREEN D.O.B./Age/Sex: 1950 - 71 - F Unit#: [id number] Location/Status: [facility] CLI Mnemonic/Ordering Site: [facility] Ordering Physician: SHAHRAM JEFFERY MD Latasha Screening Digital - 01/08/22 - 1134 EXAM: Latasha Screening Digital EXAM DATE AND TIME: 01/08/2022 11:34 AM HISTORY: Screening. COMPARISON: 05/05/19, 05/02/18, 04/21/17, 03/09/16 TECHNIQUE: CC and MLO views of both breasts were obtained using fullfield digital mammography. Bilateral digital breast tomosynthesis was performedin the MLO projection. Computer aided detection with the 3DSoC.2-Work4as employed. TISSUE DENSITY: a. The breasts are [...] Routine screening mammogram BILATERAL in 1 year. 13882, 20971 3342F, 7025F Dictating Physician: CODI LOCO MD Electronically Signed by: CODI LOCO MD Dic Date/Time: 01/08/22 1330 Sign date/Time: 01/08/22 133 Shahram Jeffery MD IMG BI PROCEDURES Final Res ult from Last 3 Months or Most Recently Relevant to Health Maintenance Insurance [facility] MEDIC[facility] on file [facility] Care Teams Field Collector Relationship Specialty Start Date End Date Shahram Jeffery MD [address] [place] [id number] PCP - General Internal Medicine 11/24/24
--- OUTSIDE RECORDS SUMMARY | 2025-04-03 15:05 | XMS_ITS | Patient Health Record ---
Author Organization [facility] Address [address] [place] [address] Support Name Relationship Address Phone BELLE GREENYCE Guarantor Unknown [phone] Reason For Referral No Information Medications Medication SIG (Take, Route, Frequency, Duration) Notes Start Date End Date Status Leesa 1 ORAL daily; Duration: -3 Fazal- 2013 Active Lipitor 1 ORAL daily; Duration: -3 Fazal- 2013 Active metFORMIN HCl 1 ORAL twice daily; Duration: -3 Fazal-Yikuaiqu 2013 Active Bystolic 1 ORAL DAILY; Duration: -3 Fazal- 2013 Active Januvia 1 ORAL daily; Duration: -3 Fazal-Yikuaiqu 2013 Active Lantus for OptiClik 100 UNIT/ML Subcutaneous AT BEDTIME; Duration: -3 Fazal-Yikuaiqu 2013 Active Problems Problem Type SNOMED Code ICD Code Onset Dates Problem Status W/U Status Risk Notes Problem Hypothyroidism (94147839) Unspecified hypothyroidism (244.9) Active confirmed Major Problem Type II diabetes mellitus uncontrolled (154379198) Diabetes mellitus without mention of complication, type II or unspecified type, uncontrolled (250.02) Active confirmed Diag Problem Benign essential hypertension (8733471) Essential hypertension, benign (401.1) Active confirmed Major Problem Spinal stenosis, excluding cervical region (disorder) (945410943) Spinal stenosis, unspecified region other than cervical (724.00) Active confirmed Major Problem Osteoarthritis (369520611) Osteoarthrosis, unspecified whether generalized or localized, unspecified site (715.90) Active confirmed Major Problem Gynecological examination normal (297093046739214) Routine gynecological examination (V72.31) Active confirmed Major Problem Screening for malignant neoplasm of colon (475044770) Special screening for malignant neoplasms, colon (V76.51) Active confirmed Major Plan Of Treatment No Information Insurance Providers Payer Name Payer Address Payer Phone Subscriber Number Group Number Insured Name Patient Relationship to Insured Coverage Start Date Coverage End Date [facility] [address] [place], [place] [id number] PUJA GREEN Self - patient is the insured
--- OUTSIDE RECORDS SUMMARY | 2025-04-03 15:05 | XMS_ITS | Continuity of Care Document ---
Author Organization [facility] [address] [place] [address] Phone [phone] Care Team Providers Care Cloth Spreader Screen Printing Name Role Phone Brenden Lucas M.D. Care Team Information Rece iver [phone] Problems Active Problems Provider Date Type 2 diabetes mellitus Ty Cooper M.D. Onset: 04/09/2022 Hyperlipidemia Ty Cooper M.D. Onset: 0 04/09/2022 Hypertensive disorder Ty Cooper M.D. On set: 04/09/2022 CVA - cerebrovascular accide nt due to cerebral artery occlusion Ty Cooper M.D. Onset: 04/09/2022 Seizure Ty Cooper M.D. Onset: 0 04/09/2022 Coronary atherosclerosis yT Cooper M.D. Onset: 04/09/2022 Social History Type Date Description Comments Sex Female Sex Unknown Lives With Spouse Tobacco Use Start: Unknown Never Smoked Cigarettes Smoking Status Reviewed: 04/28/23 Never Smoked Cigaret nela ETOH Use Denies alcohol use Allergies and adverse reactions Description No Known Drug Allergies Medications Active Medications SIG Qnty Indications Order ing Provider Date Boxsebjg42la/0.5ML Solution Auto-Inject inject weekly 6ml Ty Cooper M.D. 10/11/2024 Rznwjrw45ig Tablets 1 tablet by mouth every day 90tabs Ty Cooper M.D. 12/22/2023 Freestyle Danni 3/Armstrong/Glucose Monitoring Kmrxyq2Chogeg Device use with sensors to check blood sugar dx:e11.9 1units Ty Cooper M.D. 12/22/2023 Freestyle Danni 3/Sensor/Glucose Monitoring Qcorea0Kmpywd Misc Use as Directed To Test Blood Sugar Change Every 14 Days 6units Ty Cooper M.D. 12/22/2023 Fxvptqw8be Tablets 1 tabs by mouth ever y day 90tabs Ty Cooper M.D. 10/21/2022 Atorvastatin Rdycyfh79nc Tablets 1 by mouth every day Ty Cooper M.D. 10/21/2022 Azor5-40mg Tablets 1 tab by mouth every day Ty Cooper M.D. 04/09/2022 Vitamin D (Cholecalciferol)25 mcg (1000 Ut) Capsules 1 daily Ty Cooper M.D. 04/09/[address] tab by mouth every day at bedtime Ty Cooper M.D. 04/09/2022 Oxybutynin Chloride ER10mg Tablets ER 24HR 1 tab by mouth every day Ty Cooper M.D. 04/09/2022 Aspirin 81 Low Ooie27il Chewtabs 1 daily Ty Cooper M.D. 04/09/[address] 1 daily Ty Cooper M.D. 04/09/2022 Humalog Bvmgaeq228Oxqz/ML Solution Pen-Inject Inject 14 Units Subcutaneously AT Supper (Discard Pen 28 Days After Opening And Start A New Pen) Dx: E11.9 15units E11Catrachito9 Ty Cooper M.D. 04/09/2022 Ckybuu658Gwuf/ML Solution inject 60 units subcutaneous every day 60ml E11.9 Ty Cooper M.D. 04/09/2022 Metformin IJI5856fu Tablets Take 1 By Mouth Tablet Twice Daily 180tabs Ty Cooper M.D. History Medications Mounjaro7.5mg/0.5ML Solution Pen-Inject inject weekly 6ml Ty frank M.D. 06/29/2024 - 10/11/2024 Jjvxrgijo3gf/0.5ML Solution Pen-Inject inject 1 pen subcutaneously once a week Dx: E11.9 6ml E11Flor Cooper M.D. 04/04/2024 - 06/29/2024 Vital Signs Date Vital Result Comment 02/06/2025 2:19pm BP Systolic 140 mmHg BP Diastolic 80 mmHg Heart Rate 72 /min Height 63 inches 5'3 Weight 160.00 lb BMI (Body Mass Index) 28.3 kg/m2 Results Test Acquired Date Facility Test Result H/L Range N ote Hemoglobin A1c 02/06/2025 Inhouse Hemoglobin A1c 7.1% Glucose Fingerstick 02/06/2025 Inhouse Glucose Fingerstick 158 Glucose Fingerstick 10/11/2024 Inhouse Glucose Fingerstick 191 Hemoglobin A1c 10/11/2024 Inhouse Hemoglobin A1c 7.8% Glucose Fingerstick 06/29/2024 Inhouse Glucose Fingerstick 180 [...] Date Location Provider Dx Diagnosis Office Visit 02/06/2025 2:15p Main Office Ty Cooper M.D. E11.9 Type 2 diabetes mellitus without complications Assessments Date Code Description Provider 02/06/2025 E11.9 Type 2 diabetes mellitus without complications Ty Cooper M.D. Plan of Treatment Future Appointment(s):* 06/12/2025 4:00 pm - Ty Cooper M.D. at Main Office 06/29/2024 - Ty Cooper M.D.* E11.8 Complication due to diabetes mellitus * Functional Status Description No Information Available Mental Status Description No Information Available Referrals Description No Information Available
--- OUTSIDE RECORDS SUMMARY | 2025-04-03 15:05 | XMS_ITS | Data Portability ---
Author Organization [place] [facility] Address [address] [place] [address] Care Team Providers Care Deputy Sheriff K9 Handler Name Role Phone SHAHRAM LUCAS Primary Care Provider Assessment Encounter Date Assessment Date Assessment LastModified by Organization Details LastModified Time 09/02/2022 09/02/2022 Time On Scene with Patient: 01:33:31 DDX: CVA, anemia, TRACEY, electrolyte derangement, UTI, dehydration Pt does not demonstrate any focal neurological deficits. She demonstrates ambulation with her walker and is at her baseline. She is tolerating PO fluids. Symptoms seem to be worse in the morning and improve throughout the course of the day. NIHSS 0. Labs done in her home unremarkable without TRACEY, electrolyte derangement or anemia. Defer EKG as patient is not having any cardiac or anginal equiv for symptoms. UA was finally obtained after straight cath to obtain specimen. It appears to be positive. Will treat with macrodantin as patient has intact kidney function. PT ambulate with walker to her recliner. Resp easy, and speaking with staff and without difficulty. Has FU with PCP on Wednesday. Urine culture results will be forwarded to PCP. Not available 09/02/2022 13:21:01 Plan of Treatment Reminders Order Date Submit Date Provider Last Modified By Organization Details Last Modified Time Details Appointments None recorded. Lab BMP + ionized calcium, serum or plasma 2021 022 CLARISA [facility], [address], [place], [address], 11:49:57 urinalysis, dipstick 2021 022 [email or web address] [facility], [address], [place], [address], 12:17:11 culture, urine 2021 [place] [facility] (Centralized Electronic Ordering - All Locations), Patient Can Go To The Location Of Their Choice, [id number] 11:04:59 Referral None recorded. Procedures None recorded. Surgeries None recorded. Imaging None recorded. Medication Orders nitrofurant oin monohydrate /macrocryst als 100 mg capsule 2021 [facility][id number], [address] , [place], [address], 12:23:12 Patient TargetsNo targets recorded. Patient Instructions Encounter Date Encounter Id Patient Instructions Last Modified By Organization Details Last Modified Time 09/02/2022 [id number] [facility] came to your home to evaluate you for weakness and unsteady sensation for the past 2 days. We checked labs and urine while we were here. You have a urinary tract infection. NA 138 K 4.1 CL 100 iCA 1.18 TCO2 25 GLU 188 BUN 19 CREAT 0.5 HCT 43 HGB 14.6 ANGAP 18 We watched you walk with your walker from your bathroom and you did so safely. You do not have any other findings. You have a FU with Dr. Lucas Saturday 09/08 and they can re-evaluate you. If you have any worsening symptoms OR you feel that you cannot ambulate safely with your walker, please go to the emergency department. Continue medications as prescribed. Not available 09/02/2022 12:20:20 Reason for Referral None Reported. Results Created Date Observation Date Name Description Value Unit Range Abnormal Flag Note LastModifiedBy Organization Detail LastModifiedTime 09/02/2009/03/2022 URINE CULTU RE specimen description URINE STRAIG HT CATH. Not Available [facility] (Centralized Electronic Ordering - All Locations) Patient Can Go To The Location Of Their Choice, [id number] 09/05/2022 11:04:59 09/02/2009/03/2022 URINE CULTU RE special requests NONE Not Available [facility] (Centralized Electronic Ordering - All Locations) Patient Can Go To The Location Of Their Choice, 09/05/2022 11:04:59 09/02/2009/05/2022 URINE CULTU RE culture abnormal >100, 000 COL/M L ESCHE CUAUHTEMOC A COLI This isola te was ident ified using Maldi -TOF syste m These AST resul ts were perfo rmed on the Micro scan ID and AST syste m Not Available [facility] (Centralized Electronic Ordering - All Locations) Patient Can Go To The Location Of Their Choice, 09/05/2022 11:04:59 09/02/2009/05/2022 URINE CULTU RE report status FINAL 2021 Not Available [facility] (Centralized Electronic Ordering - All Locations) Patient Can Go To The Location Of Their Choice, 09/05/2022 11:04:59 09/02/2009/05/2022 URINE CULTU RE organism ORGAN ISM >100, 000 COL/M L ESCHE CUAUHTEMOC A COLI This isola te was ident ified using Maldi -TOF syste m These AST resul ts were perfo rmed on the Micro scan ID and AST syste m Not Available [facility] (Centralized Electronic Ordering - All Locations) Patient Can Go To The Location Of Their Choice, 09/05/2022 11:04:59 09/02/2009/05/2022 URINE CULTU RE method METHOD MIN. INHIB. CONC. (MCG/M L) Not Available [facility] (Centralized Electronic Ordering - All Locations) Patient Can Go To The Location Of Their Choice, 09/05/2022 11:04:59 09/02/2009/05/2022 URINE CULTU RE ampicillin AMPICI LLIN SUSCEP TIBLE susceptib le Not Available [facility] (Centralized Electronic Ordering - All Locations) Patient Can Go To The Location Of Their Choice, 09/05/2022 11:04:59 09/02/2009/05/2022 URINE CULTU RE ampicillin/s ulbactam AMPICI LLIN/S ULBACT AM SUSCEP TIBLE susceptib le Not Available [facility] (Centralized Electronic Ordering - All Locations) Patient Can Go To The Location Of Their Choice, 09/05/2022 11:04:59 09/02/20 22 09/05/2022 URINE CULTU RE amoxicillin/ clavulanic acid AMOXIC ILLIN/ CLAVUL AN SUSCEP TIBLE susceptib le Not Available [facility] (Centralized Electronic Ordering - All Locations) Patient Can Go To The Location Of Their Choice, [id number] 09/05/2022 11:04:59 09/02/2009/05/2022 URINE CULTU RE cefazolin CEFAZO REMBERTO SUSCEP TIBLE susceptib le Not Available [facility] (Centralized Electronic Ordering - All Locations) Patient Can Go To The Location Of Their Choice, [id number] 09/05/2022 11:04:59 09/02/2009/05/2022 URINE CULTU RE cefepime CEFEPI ME SUSCEP TIBLE susceptib le Not Available [facility] (Centralized Electronic Ordering - All Locations) Patient Can Go To The Location Of Their Choice, [id number] 09/05/2022 11:04:59 09/02/2009/05/2022 URINE CULTU RE ceftriaxone CEFTRI AXONE SUSCEP TIBLE susceptib le Not Available [facility] (Centralized Electronic Ordering - All Locations) Patient Can Go To The Location Of Their Choice, [id number] 09/05/2022 11:04:59 09/02/20 22 09/05/2022 URINE CULTU RE ciprofloxaci n CIPROF LOXACI N SUSCEP TIBLE susceptib le Not Available [facility] (Centralized Electronic Ordering - All Locations) Patient Can Go To The Location Of Their Choice, [id number] 09/05/2022 11:04:59 09/02/2009/05/2022 URINE CULTU RE ertapenem ERTAPE NEM SUSCEP TIBLE susceptib le Not Available [facility] (Centralized Electronic Ordering - All Locations) Patient Can Go To The Location Of Their Choice, [id number] 09/05/2022 11:04:59 09/02/2009/05/2022 URINE CULTU RE gentamicin GENTAM ICIN SUSCEP TIBLE susceptib le Not Available [facility] (Centralized Electronic Ordering - All Locations) Patient Can Go To The Location Of Their Choice, [id number] 09/05/2022 11:04:59 09/02/20 22 09/05/2022 URINE CULTU RE levofloxacin LEVOFL OXACIN SUSCEP TIBLE susceptib le Not Available [facility] (Centralized Electronic Ordering - All Locations) Patient Can Go To The Location Of Their Choice, [id number] 09/05/2022 11:04:59 09/02/2009/05/2022 URINE CULTU RE meropenem MEROPE NEM SUSCEP TIBLE susceptib le Not Available [facility] (Centralized Electronic Ordering - All Locations) Patient Can Go To The Location Of Their Choice, [id number] 09/05/2022 11:04:59 09/02/2009/05/2022 URINE CULTU RE nitrofuranto in NITROF URANTO IN SUSCEP TIBLE susceptib le Not Available [facility] (Centralized Electronic Ordering - All Locations) Patient Can Go To The Location Of Their Choice, [id number] 09/05/2022 11:04:59 09/02/2009/05/2022 URINE CULTU RE piperacillin /tazobactam PIPERA CILLIN /TAZOB AC SUSCEP TIBLE susceptib le Not Available [facility] (Centralized Electronic Ordering - All Locations) Patient Can Go To The Location Of Their Choice, [id number] 09/05/2022 11:04:59 09/02/2009/05/2022 URINE CULTU RE trimeth/sulf amethox TRIMET H/SULF AMETHO X SUSCEP TIBLE susceptib le Not Available [facility] (Centralized Electronic Ordering - All Locations) Patient Can Go To The Location Of Their Choice, [id number] 09/05/2022 11:04:59 09/02/2009/05/2022 URINE CULTU RE tetracycline TETRAC YCLINE SUSCEP TIBLE susceptib le Not Available [facility] (Centralized Electronic Ordering - All Locations) Patient Can Go To The Location Of Their Choice, [id number] 09/05/2022 11:04:59 09/02/20 22 09/02/2022 urina lysis , dipst ick Appearance cloudy Not Available [facility] [address], [place], [address], 09/02/2022 11:42:18 09/02/20 22 09/02/2022 urina lysis , dipst ick Color yellow Not Available [facility] [address], [place], [address], 09/02/2022 11:42:18 09/02/20 22 09/02/2022 urina lysis , dipst ick Glucose (ref: neg Neg Not Available [facility] [address] [place], [address], 09/02/2022 11:42:18 09/02/20 22 09/02/2022 urina lysis , dipst ick Bilirubin (ref: neg) Neg Not Available [facility] [address] [place], [address], 09/02/2022 11:42:18 09/02/20 22 09/02/2022 urina lysis , dipst ick Ketones (ref: neg) ++ Not Available [facility] [address], [place], [address], 09/02/2022 11:42:18 09/02/20 22 09/02/2022 urina lysis , dipst ick Specific [place] (ref: 1.003 - 1.035) 1.025 Not Available [facility] [address], [place], [address], 09/02/2022 11:42:18 09/02/20 22 09/02/2022 urina lysis , dipst ick Blood (ref: neg) + Not Available [facility] [address], [place], [address], 09/02/2022 11:42:18 09/02/20 22 09/02/2022 urina lysis , dipst ick pH (ref: 5.0-7.0) 5.0 Not Available [facility] [address] [place], [address], 09/02/2022 11:42:18 09/02/20 22 09/02/2022 urina lysis , dipst ick Protein (ref: neg) ++ Not Available [facility] [address] [place], [address], 09/02/2022 11:42:18 09/02/20 22 09/02/2022 urina lysis , dipst ick Urobilinogen (ref: 0.2-1.0) 0.2 Not Available [facility] [address] [place], [address], 09/02/2022 11:42:18 09/02/20 22 09/02/2022 urina lysis , dipst ick Nitrites (ref: neg) positi ve Not Available [facility] [address] [place], [address], 09/02/2022 11:42:18 09/02/20 22 09/02/2022 urina lysis , dipst ick Leukocytes (ref: neg) +++ Not Available [facility] [address] [place], [address], 09/02/2022 11:42:18 09/02/20 22 09/02/2022 urina lysis , dipst ick [facility] [address] [place] [address], [id number] Not Available [facility] [address] [place], [address], 09/02/2022 11:42:18 09/02/20 22 09/02/2022 BMP + IONIZ ED CALCI UM, SERUM OR PLASM A glu 188 mg/dL 70-105 Not Available [facility] [address] [place], [address], 09/02/2022 11:49:57 09/02/20 22 09/02/2022 BMP + IONIZ ED CALCI UM, SERUM OR PLASM A BUN 19 mg/dL 8-26 Not Available [facility] [address] [place], [address], 09/02/2022 11:49:57 09/02/20 22 09/02/2022 BMP + IONIZ ED CALCI UM, SERUM OR PLASM A crea 0.5 mg/dL 0.6-1. 3 Not Available [facility] [address] [place], [address], 09/02/2022 11:49:57 09/02/20 22 09/02/2022 BMP + IONIZ ED CALCI UM, SERUM OR PLASM A Na 138 mmol/ L 138-14 6 Not Available [address], [address], 09/02/2022 11:49:57 09/02/20 22 09/02/2022 BMP + IONIZ ED CALCI UM, SERUM OR PLASM A K 4.1 mmol/ L 3.5-4. 9 Not Available [address], [address], 09/02/2022 11:49:57 09/02/20 22 09/02/2022 BMP + IONIZ ED CALCI UM, SERUM OR PLASM A cL 100 mmol/ L 98-109 Not Available [address], [address], 09/02/2022 11:49:57 09/02/20 22 09/02/2022 BMP + IONIZ ED CALCI UM, SERUM OR PLASM A TCO2 25 mmol/ L 24-29 Not Available [address], [address], 09/02/2022 11:49:57 09/02/20 22 09/02/2022 BMP + IONIZ ED CALCI UM, SERUM OR PLASM A angap 18 mmol/ L 10-20 Not Available [address], [address], 09/02/2022 11:49:57 09/02/20 22 09/02/2022 BMP + IONIZ ED CALCI UM, SERUM OR PLASM A ica 1.18 mmol/ L 1.12-1 .32 Not Available [address], [address], 09/02/2022 11:49:57 09/02/20 22 09/02/2022 BMP + IONIZ ED CALCI UM, SERUM OR PLASM A HCT 43 %pcv 38-51 Not Available [facility] [address] [place], [address], 09/02/2022 11:49:57 09/02/20 22 09/02/2022 BMP + IONIZ ED CALCI UM, SERUM OR PLASM A Hb 14.6 g/dL 12-17 Not Available [facility] [address] [place], [address], 09/02/2022 11:49:57 Result Notes None recorded. Procedures Surgical History Date Name Laterality Status Provider Name and Address Organization Details Recorded Time 09/02/20 Venipuncture - completed MONTSE PEREZ NP [address] [place], [address], [place] [facility] 09/02/2022 11:55:59 09/02/20 Straight Cath - completed MONTSE PEREZ NP [address] [place], [address], [place] [facility] 09/02/2022 13:05:50 Imaging Results None recorded. Procedure Notes None recorded. Medical Equipment None Reported. Allergies No known drug allergies Medications Name Sig Start Date Stop Date Status Note LastModified by Organization Details LastModified Time atorvastati n 40 mg tablet TAKE 1 TABLET BY MOUTH DAILY active Not Available Not Available No t Available desonide 0.05 % topical cream PLEASE SEE ATTACHED FOR DETAILED DIRECTION S active Not Available Not Available No t Available atorvastati n 80 mg tablet TAKE 1 TABLET BY MOUTH EVERY DAY active Not Available Not Available No t Available doxycycline hyclate 100 mg capsule TAKE 1 CAPSULE BY MOUTH 2 TIMES PER DAY FOR 10 DAYS FOR INFECTION 09/02 completed Not Available Not Available Not Available levetiracet am 500 mg tablet TAKE 2 TABLETS BY MOUTH TWO TIMES A DAY active Not Available Not Available No t Available metformin 1,000 mg tablet TAKE 1 TABLET BY MOUTH TWO TIMES A DAY active Not Available Not Available No t Available divalproex 125 mg tablet,brenden yed release TAKE 1 TABLET BY MOUTH TWO TIMES A DAY active Not Available Not Available No t Available gabapentin 100 mg capsule TAKE 1 CAPSULE BY MOUTH THREE TIMES A DAY X7 DAYS THEN TAKE 2 CAPSULES THREE TIMES A DAY X7 DAYS AND THEN TAKE 3 CAPSULES THREE TIMES A DAY THEREAFTE R active Not Available Not Available No t Available moxifloxaci n 0.5 % eye drops INSTILL 1 DROP INTO THE RIGHT EYE FOUR TIMES A DAY. (*START 3 DAYS BEFORE SURGERY DIRECTED) * active Not Available Not Available No t Available nitrofurant oin monohydrate /macrocryst als 100 mg capsule Take 1 capsule every 12 hours by oral route for 5 days. active Not Available Not Available No t Available Lantus Solostar U-100 Insulin 100 unit/mL (3 mL) subcutaneou s pen INJECT 44 UNITS SUBCUTANE OUSLY ONCE DAILY active Not Available Not Available No t Available Humalog KwikPen (U-100) Insulin 100 unit/mL subcutaneou s INJECT 10 UNITS SUBCUTANE OUSLY AT SUPPER (DISCARD PEN 28 DAYS AFTER OPENING AND START A NEW PEN) active Not Available Not Available No t Available diflupredna te 0.05 % eye drops INSTILL 1 DROP INTO THE RIGHT EYE FOUR TIMES A DAY DIRECTED. *(DO NOT START UNTIL DIRECTED AFTER SURGERY)* active Not Available Not Available No t Available BD Ultra-Fine Laury Pen Needle 32 gauge x 5/32 USE 2 NEEDLES ONCE DAILY WITH LANTUS AND HUMALOG active Not Available Not Available No t Available Trulicity 1.5 mg/0.5 mL subcutaneou s pen injector INJECT THE CONTENTS OF 1 PEN SUBCUTANE OUSLY ONCE A WEEK active Not Available Not Available No t Available FreeStyle Danni 14 Day Sensor kit USE DIRECTED TO CHECK BLOOD SUGARS FOUR TIMES A DAY; CHANGE SENSOR EVERY 14 DAYS active Not Available Not Available No t Available Vitals Date Recorded Body temperature Oxygen saturation Oxygen saturation in Arterial blood by Pulse oximetry Respiratory rate Heart rate Systolic And Diastolic Provider Name and Address Organization Details Last Updated DateTime 2 97.6 [degF] 97 % 97 % 20 /min 84 /min 168/98 mm[Hg] Not Available [facility] 2 11:30:34 Social History None recorded. Functional Status None recorded. Mental Status None recorded. Family History Nothing Reported. Medical History No medical history recorded. Gynecological HistoryNo gynecological history recorded. Obstetrics History GPAL:G 0 P 0 0 0 0 Past Encounters Encounter ID Performer Location Encounter Start Date Encounter Closed Date Diagnosis/Indication Diagnosis SNOMED-CT Code Diagnosis ICD10 Code Diagnosis Note [id number] MONTSE PEREZ NP [facility] [address] [place] [address] 09/02/2022 11:23:02 09/02/2022 14:50:19 Tremor 41707885 R25.1 Acute urin luisa tract infection 294260482 N39.0 Health Concerns Section Related Observation LastModified by Organization Detai ls LastModified Time None Recorded Concern Status LastModified by Organization Details LastModified Time None Recorded Advance Directives Directive None Recorded Payers Insurance Date Sequence Insurance Name Policy Number Policy Andrew Covered Member ID Andrew Member ID Guarantor Name 09/09/2022 1 [facility] - MEDICARE ADVANTAGE PLAN (MEDICARE REPLACEMENT HMO) [id number] Shelia Bajwa [id number] Dax Payne 09/02/2022 1 *SELF PAY* Shelia Bajwa [id number] Dax Payne Notes Date Note Type Note Provider Name and Address Organization Details Recorded Time 09/02/2022 text/html 71 year-old fema le with history of CVA, DM, HTN, HLD, seizures, who calls to the home for evaluation of intermittent weakness. Pt sts that since Wednesday she has been feeling a bit wobbly with movement. She feels it is all over. She has the sensation in her head as well. She denies any headaches or vision issues. She has had a normal appetite, normal bowel movements. THere have been no rashes. She denies any spinning or unsteadiness to her gait. She has not had any fevers or chills. She denies any shortness of breath, chest pain. She uses her walker as she has for the past 3 years since her CVA. She denies any falls. SHe has noticed that her urine seems more foul smelling. MONTSE PEREZ NP [address], [place], [address], [place] [facility] 09/02/2022 13:21:16 OBGyn Episode No OBEpisode recorded.
== END 2025-04-03 15:53 | disposition home or self-care (01) ==
LOC: HO.HMCH 14:15
DX: Z13.9 Encounter for screening, unspecified (principal)

== ENCOUNTER → 2025-04-03 14:14 | Outpatient (BNVA) | payer OTHER, SELFPAY | DX: Z00.00 Encounter for general adult medical examination without abnormal findings (principal); I10 Essential (primary) hypertension; E78.00 Pure hypercholesterolemia, unspecified; E11.9 Type 2 diabetes mellitus without complications; G40.909 Epilepsy, unspecified, not intractable, without status epilepticus; H61.20 Impacted cerumen, unspecified ear; Z86.73 Personal history of transient ischemic attack (TIA), and cerebral infarction without residual deficits | CPT/HCPCS: 83036; 96127 ==